=== PATIENT | male | born 1955 | race Caucasian/White ===

== ENCOUNTER 2017-12-11 09:29 | Outpatient (CLI) | payer OTHER ==
--- NOTE | 2017-12-11 16:28 | Ultrasound Report ---
Procedure Date: 12/11/2017 Accession Number: [id number] / [id number] Procedure: US - Abdomen Complete CPT Code: FULL RESULT: EXAM: ABDOMEN ULTRASOUND EXAM DATE: 12/11/2017 11:38 AM. CLINICAL HISTORY: LIVER FUNCTION TESTS, ABNORMAL. COMPARISON: 12/11/2017 11:35 AM. TECHNIQUE: Real-time scanning was performed with static images obtained. FINDINGS: The examination is limited by the patient's body habitus. Liver: Coarse echotexture was increased echogenicity which can be seen with parenchymal disease such as steatosis. Liver measures at least 20 cm and appears subjectively somewhat enlarged. Main portal vein flow: Hepatopetal. Gallbladder: Normal. No stones, wall thickening, or sonographic Smith's sign. Biliary System: Common bile duct measures 3 mm. No intrahepatic or extrahepatic ductal dilatation. Pancreas: Not well seen. Kidneys: Right: 12.9 cm longitudinally. Normal. No contour-deforming mass, stones, or hydronephrosis. Left: 13.4 cm longitudinally. Normal. No contour-deforming mass, stones, or hydronephrosis. Spleen: 14.2 cm. Top normal in size, splenule incidentally noted. Aorta and Inferior Vena Cava: Unremarkable. Other: None. IMPRESSION: Echogenic liver, borderline enlarged. Suspect hepatic steatosis. Spleen top normal for size. RADIA
== END 2017-12-11 09:30 | disposition home or self-care (01) ==
LOC: DI 09:29
PROVIDERS: ATTEND Family Medicine
DX: R94.5 Abnormal results of liver function studies (principal)
CPT/HCPCS: 76700

== ENCOUNTER 2017-12-28 13:12 | Outpatient (CLI) | payer OTHER | END 2017-12-28 13:13 | disposition home or self-care (01) | LOC: NS 13:12 | PROVIDERS: ATTEND Family Medicine | DX: Z71.3 Dietary counseling and surveillance (principal); E11.65 Type 2 diabetes mellitus with hyperglycemia; Z68.41 Body mass index [BMI] 40.0-44.9, adult | CPT/HCPCS: 97802 ==

== ENCOUNTER 2018-06-22 13:46 | Outpatient (CLI) | payer OTHER ==
--- NOTE | 2018-06-23 16:12 | MRI Report ---
Reason: CERVICAL RADICULOPATHY, LEFT Procedure Date: 06/22/2018 Accession Number: [id number] / [id number] Procedure: MRI - Cervical Spine W/O CPT Code: FULL RESULT: EXAM: MRI CERVICAL SPINE WITHOUT CONTRAST EXAM DATE: 06/22/2018 02:46 PM. CLINICAL HISTORY: CERVICAL RADICULOPATHY, LEFT. COMPARISONS: Prior MRI cervical spine 06/10/2011. TECHNIQUE: Multiplanar, multisequence T1-weighted and fluid-sensitive sequences of the cervical spine without contrast. Other: None. Findings: Relevant images are indicated (image number, series number). Limited evaluation posterior cranial fossa contents are unremarkable. No abnormal cervical, thoracic cord signal. No suspicious marrow lesion. No prevertebral soft tissue swelling. Again seen advanced multilevel cervical spondylosis, progressive in the interval. There is no cervical paraspinal mass or collection. Normal expected vascular flow voids of the partly visualized bilateral vertebral arteries. Surrounding skeletal muscle is unremarkable. C1-C2: Unremarkable. C2-C3: Mild disk desiccation only. C3-C4: Mild disk desiccation, mild degenerative bilateral neural foramina narrowing. C4-C5: Mild/moderate disk desiccation, new grade 1 anterolisthesis C4 on C5, posterior broad-based disk bulge, moderate/marked canal stenosis. Uncovertebral joint, posterior facet hypertrophic change with moderate to marked left, moderate right neural foramina narrowing. C5-C6: Intervertebral disk space poorly seen suggesting either prior fusion versus progressive bony fusion, but no canal stenosis present. Moderate left, no significant right degenerative neural foraminal narrowing with posterior facet/uncovertebral joint hypertrophic change. C6-C7: Poorly visualized intervertebral disk suggesting prior fusion versus progressive bony degenerative fusion, posterior disk osteophyte complex with mild canal stenosis. Uncovertebral joint, posterior facet hypertrophic change with moderate left, marked right neural foramina narrowing. C7-T1: Moderate/marked disk desiccation, small posterior disk bulge, no canal stenosis. Uncovertebral joint, posterior facet hypertrophic change with marked bilateral neural foramina narrowing. C7-T1, T1-T2 demonstrates mild disk desiccation only with suspected hemangioma at T2. Impressions: 1. Progressive cervical spondylosis, worse compared with prior MRI cervical spine 06/10/2011, no abnormal cervical cord signal. Patient appears to have had interval fusion at C5-C6, C6-C7, correlate with the surgical history, otherwise progressive intervertebral bony fusion has occurred. Pertinent degenerative levels below. 2. C4-C5: New grade 1 anterolisthesis C4 on C5, moderate/marked degenerative canal stenosis. Moderate to marked degenerative bilateral neural frontal narrowing may contribute to bilateral C5 radiculopathy. 3. C5-C6: Suspected intervertebral fusion, correlate clinically. No canal stenosis. Moderate degenerative left neural foramina narrowing may contribute a left C6 radiculopathy. 4. C6-C7: Suspected intervertebral fusion, correlate clinically. Mild degenerative canal stenosis. There is moderate to marked degenerative bilateral neural frontal narrowing right worse than left, may contribute to bilateral C7 radiculopathy. 5. C7-T1: Moderate/marked disk desiccation, marked degenerative bilateral neural foramina narrowing may contribute a bilateral C8 radiculopathy. 6. Milder or no significant degenerative changes at the remaining cervical, upper thoracic spine levels as detailed. RADIA
== END 2018-06-22 13:47 | disposition home or self-care (01) ==
LOC: DI 13:46
PROVIDERS: ATTEND Family Medicine
DX: M47.22 Other spondylosis with radiculopathy, cervical region (principal); M48.02 Spinal stenosis, cervical region; Z98.1 Arthrodesis status
CPT/HCPCS: 72141

== ENCOUNTER 2018-08-30 15:22 | Outpatient (CLI) | payer OTHER ==
--- NOTE | 2018-09-02 08:35 | Ultrasound Report ---
Reason: VARICOSE VEINS,LOWER EXTREMITIES,WITH ULCER,LEG PA Procedure Date: 08/30/2018 Accession Number: [id number] / [id number] Procedure: US - Duplex Ext Veins Right CPT Code: FULL RESULT: EXAM: RIGHT LOWER EXTREMITY VENOUS ULTRASOUND EXAM DATE: 08/30/2018 04:14 PM. CLINICAL HISTORY: Leg pain COMPARISON: 08/30/2018 4:22 PM. TECHNIQUE: Real-time sonographic vascular imaging was performed by the civil manager through the lower extremity utilizing both color-flow and Doppler spectral analysis. Multiple outside sales account representative static images were saved for review. FINDINGS: Common Femoral Vein (CFV): Normal. CFV-GSV Junction: Normal. Profunda Femoral Vein (PFV): Normal. Femoral Vein (FV) Prox: Normal. Femoral Vein (FV) Mid: Normal. Femoral Vein (FV) Dist: Normal. Popliteal Vein: Normal. Posterior Tibial Veins: Normal. Peroneal Veins: Normal. Contralateral Side CFV: Normal. Other: Multiple superficial varicose veins are noted. IMPRESSION: No evidence for deep venous thrombosis. RAD[facility]
== END 2018-08-30 15:23 | disposition home or self-care (01) ==
LOC: DI 15:22
PROVIDERS: ATTEND Family Medicine
DX: I83.009 Varicose veins of unspecified lower extremity with ulcer of unspecified site (principal); M79.604 Pain in right leg

== ENCOUNTER 2018-10-22 16:45 | Emergency (ER) | payer MEDICARE, OTHER ==
--- NOTE | 2018-10-22 17:07 | ED Physician Documentation ---
History of Present Illness - Stated complaint Stated Complaint: WOUND RT ANKLE - Chief complaint Chief Complaint: Ext Problem - History obtained from History obtained from: Patient - History of Present Illness Timing: Last night (63-year-old gentleman with history of varicose veins, sees a vascular surgeon for same but no history of arterial disease. He is a type II diabetic. He has a nonhealing wound that is not particularly worse appearing on the right medial ankle and always has some pain for it but last night the pain was intermittently intolerable. There is no fever.) Review of Systems Constitutional: denies: Fever, Chills Cardiac: denies: Chest pain / pressure, Palpitations Respiratory: denies: Dyspnea, Cough GI: denies: Abdominal Pain, Nausea, Vomiting PD PAST MEDICAL HISTORY - Past Medical History Past Medical History: No Cardiovascular: Hypertension, High cholesterol Respiratory: Sleep apnea, CPAP use Neuro: None Endocrine/Autoimmune: Type 2 diabetes GI: GERD, Hiatal hernia : Benign prostate hypertrophy, Frequency HEENT: Chronic vision loss, Other Psych: Depression Musculoskeletal: Osteoarthritis, Other Derm: Psoriasis - Past Surgical History Past Surgical History: Yes General: Colonoscopy, Other Ortho: Spine surgery Neuro: Other HEENT: Tonsil/Adenoidectomy, Other - Present Medications Home Medications: Ambulatory Orders Medication Instructions Recorded Confirmed Acyclovir 400 mg PO TID PRN 10/29/15 12/21/17 Celecoxib [Celebrex] 200 mg PO DAILY 10/29/15 12/21/17 Fluticasone [Flonase] 2 sprays MEREDITH QPM 10/29/15 12/21/17 Metoprolol Tartrate [Lopressor] 25 mg PO BID 10/29/15 12/21/17 Simvastatin 20 mg PO DAILY 10/29/15 12/21/17 Zolpidem [Ambien] 10 mg PO HS 10/29/15 12/21/17 hydroCHLOROthiazide [Hydrodiuril] 25 mg PO DAILY 10/29/15 12/21/17 Doxazosin Mesylate 8 mg PO DAILY 12/21/17 12/21/17 buPROPion [Wellbutrin Sr] 150 mg PO BID 12/21/17 12/21/17 metFORMIN [Glucophage] 500 mg PO BID 12/21/17 12/21/17 Glipizide 5 mg PO BID 08/06/18 08/06/18 Gabapentin [Neurontin] 300 mg PO TID #60 capsule 10/22/18 - Allergies Allergies/Adverse Reactions: Allergies Allergy/AdvReac Type Severity Reaction Status Date / Time Penicillins Allergy Rash Verified 10/29/15 13:34 lisinopril AdvReac Unknown Verified 10/29/15 13:34 prednisone AdvReac Unknown Verified 10/29/15 13:34 - Social History Does the pt smoke?: No Smoking Status: Never smoker Does the pt drink ETOH?: No Does the pt have substance abuse?: No - Immunizations Immunizations are current?: Yes - POLST Patient has POLST: No PD ED PE NORMAL - Vitals Vital signs reviewed: Yes - General General: Alert and oriented X 3, No acute distress - Extremities Extremities: Other (On the right medial ankle there is a dime sized wound without evidence of infection. He has bounding pedal pulses and warm feet.) - Neuro Neuro: Alert and oriented X 3, Normal speech Results - Vitals Vitals: Vital Signs - 24 hr 10/22/18 16:49 Temperature 36.6 C Heart Rate 76 Respiratory 16 Rate Blood Pressure 149/90 H O2 Saturation 98 Oxygen O2 Source Room air - Labs Labs: Laboratory Tests 10/22/18 10/22/18 10/22/18 17:15 17:15 17:15 WBC 6.3 RBC 4.88 Hgb 14.7 Hct 44.1 MCV 90.4 MCH 30.1 MCHC 33.3 RDW 12.7 Plt Count 169 MPV 8.9 Neut # (Auto) 3.7 Lymph # (Auto) 1.6 [place] # (Auto) 0.6 Eos # (Auto) 0.2 Baso # (Auto) 0.0 Absolute Nucleated RBC 0.00 Nucleated RBC % 0.0 ESR 6 Sodium 139 Potassium 4.1 Chloride 101 Carbon Dioxide 28 Anion Gap 10.0 BUN 19 Creatinine 0.8 Estimated GFR (MDRD) 97 Glucose 149 H Calcium 9.6 PD MEDICAL DECISION MAKING - ED course ED course: 63-year-old gentleman with a nonhealing wound of the right medial ankle with increased pain. Its a lancinating intermittent pain. He has bounding pulses and warm feet, there is no evidence of peripheral vascular disease or ischemia as the cause of the pain. There may be a neuropathic component and he has take gabapentin in the past without issue and we will restart that. Labs are reassuring from an infectious standpoint. Departure - Departure Disposition: 01 Home, Self Care Clinical Impression: Neuropathic pain Wound of right ankle Qualifiers: Encounter type: initial encounter Qualified Code(s): S91.001A - Unspecified open wound, right ankle, initial encounter Diabetes Qualifiers: Diabetes mellitus type: type 2 Diabetes mellitus longterm insulin use: without marine oil terminal superintendent use Diabetes mellitus complication status: without complication Qualified Code(s): E11.9 - Type 2 diabetes mellitus without complications Condition: Good Record reviewed to determine appropriate education?: Yes Health Concerns: Worsening right ankle pain and a nonhealing wound; no evidence of peripheral vascular disease, arterial flow was excellent. There is no evidence of infection on x-ray or labs so suspect neuropathy is the source and we are starting gabapentin. Plan of Treatment: Starting gabapentin for pain control. Follow-up with your vascular surgeon and primary care physician. Care Goals: Improved pain, infection and significant arterial disease are ruled out. Instructions: ED Wound Care Prescriptions: Gabapentin [Neurontin] 300 mg PO TID #60 capsule Comments: Your blood pressure was elevated today on check into the emergency department. This does not mean that you have hypertension, it is a common phenomenon to come to the emergency department and have elevated blood pressure. I recommend that you see your primary care physician within the week to have it rechecked when you are feeling better.
[2018-10-22 17:24] LABS: BASOPHILS % (AUTO) 0.6 %; EOSINOPHILS # (AUTO) 0.2 10^3/uL (0.0-0.7); EOSINOPHILS % (AUTO) 3.5 %; HGB - HEMOGLOBIN 14.7 g/dL (14.0-18.0); LYMPHOCYTES # (AUTO) 1.6 10^3/uL (1.5-3.5); LYMPHOCYTES % (AUTO) 26.2 %; MEAN CORPUSCULAR HEMOGLOBIN 30.1 pg (27.0-31.0); MEAN CORPUSCULAR HGB CONC 33.3 g/dL (32.0-36.0); MEAN CORPUSCULAR VOLUME 90.4 fL (80.0-94.0); MEAN PLATELET VOLUME 8.9 fL (7.4-11.4); MONOCYTES # (AUTO) 0.6 10^3/uL (0.0-1.0); MONOCYTES % (AUTO) 9.7 %; NEUTROPHILS # (AUTO) 3.7 10^3/uL (1.5-6.6); NEUTROPHILS % (AUTO) 59.5 %; PLT - PLATELET COUNT 169 10^3/uL (130-450); RED BLOOD COUNT 4.88 10^6/uL (4.70-6.10); RED CELL DISTRIBUTION WIDTH 12.7 % (12.0-15.0); WHITE BLOOD COUNT 6.3 x10^3/uL (4.8-10.8)
[2018-10-22 17:44] LABS: BUN - BLOOD UREA NITROGEN 19 mg/dL (6-20); CALCIUM 9.6 mg/dL (8.5-10.3); CARBON DIOXIDE - CO2 28 mmol/L (21-32); CHLORIDE 101 mmol/L (101-111); CREATININE 0.8 mg/dL (0.6-1.2); GFR - MDRD 97 (>89); GLUCOSE 149 mg/dL (70-100); SODIUM 139 mmol/L (135-145)
--- NOTE | 2018-10-22 17:45 | XRAY Report ---
Reason: ankle pain, wound medial side Procedure Date: 10/22/2018 Accession Number: [id number] / [id number] Procedure: XR - Ankle 3 View RT CPT Code: FULL RESULT: EXAM: RIGHT ANKLE RADIOGRAPHY EXAM DATE: 10/22/2018 05:15 PM. CLINICAL HISTORY: Ankle pain, wound medial side. COMPARISON: ANKLE 3 VIEW RT 05/23/2017 11:50 AM. TECHNIQUE: 3 views. FINDINGS: Bones: No fracture or focal bony lesion. Joints: No evidence of dislocation. Soft Tissues: There is a small amount of linear calcification at the posterior margin of the distal tibia. No evidence of soft tissue air. No radiopaque foreign body. IMPRESSION: No evidence of fracture or focal bony lesion. RAD[facility]
[2018-10-22 18:05] VITALS: BP 138/82
[2018-10-22 18:20] LABS: CRP - C-REACTIVE PROTEIN < 1.0 mg/dL (0-1.0)
== END 2018-10-22 18:04 | disposition home or self-care (01) ==
LOC: ED 16:45
DX: S91.001A Unspecified open wound, right ankle, initial encounter (principal); X58.XXXA Exposure to other specified factors, initial encounter; E11.40 Type 2 diabetes mellitus with diabetic neuropathy, unspecified; Z79.84 Long term (current) use of oral hypoglycemic drugs; I10 Essential (primary) hypertension
CPT/HCPCS: 36415; 80048; 85025; 85651; 86140; 99283

== ENCOUNTER 2019-03-22 19:38 | Outpatient (CLI) | payer MEDICARE, OTHER | END 2019-03-22 19:39 | disposition critical access hospital (66) | LOC: EMS 19:38 | PROVIDERS: ATTEND Surgery | DX: M54.2 Cervicalgia (principal); R25.2 Cramp and spasm | CPT/HCPCS: A0425; A0429 ==

== ENCOUNTER 2019-03-22 19:50 | Emergency (ER) | payer MEDICARE, OTHER ==
[2019-03-22] MEDS ORDERED: SODIUM CHLORIDE 0.9% 1,000 ML IV ONE (20:05)
[2019-03-22] MEDS ORDERED: ONDANSETRON 4 MG/2 ML VIAL IVP STA (20:05)
[2019-03-22] MEDS ORDERED: KETOROLAC 30 MG/ML VIAL IVP STA (20:05)
[2019-03-22] MEDS ORDERED: HYDROmorphone 1 MG/ML CARPUJECT IVP STA ×2 (20:05→20:49)
--- NOTE | 2019-03-22 20:07 | ED Physician Documentation ---
History of Present Illness - Stated complaint Stated Complaint: NECK PAIN - Chief complaint Chief Complaint: General - History obtained from History obtained from: Patient, EMS - History of Present Illness Timing: Today (63-year-old gentleman with history of C5-C6 neck fusion presents with severe spasms of his neck starting earlier today. Its on the right side and down into the right upper back. It hurts more to rotate than it does to flex or extend. He denies weakness, numbness, tingling, saddle anesthesia, fevers. He tried Flexeril without relief.) Review of Systems Ten Systems: 10 systems reviewed and negative Constitutional: denies: Fever, Chills Cardiac: denies: Chest pain / pressure, Palpitations Respiratory: denies: Dyspnea, Cough GI: reports: Nausea. denies: Abdominal Pain, Vomiting PD PAST MEDICAL HISTORY - Past Medical History Cardiovascular: Hypertension, High cholesterol Respiratory: Sleep apnea, CPAP use Neuro: None Endocrine/Autoimmune: Type 2 diabetes GI: GERD, Hiatal hernia : Benign prostate hypertrophy, Frequency HEENT: Chronic vision loss, Other Psych: Depression Musculoskeletal: Osteoarthritis, Other Derm: Psoriasis - Past Surgical History Past Surgical History: Yes General: Colonoscopy, Other Ortho: Spine surgery Neuro: Other HEENT: Tonsil/Adenoidectomy, Other - Present Medications Home Medications: Ambulatory Orders Medication Instructions Recorded Confirmed Acyclovir 400 mg PO TID PRN 10/29/15 12/21/17 Celecoxib [Celebrex] 200 mg PO DAILY 10/29/15 12/21/17 Fluticasone [Flonase] 2 sprays MEREDITH QPM 10/29/15 12/21/17 Metoprolol Tartrate [Lopressor] 25 mg PO BID 10/29/15 12/21/17 Simvastatin 20 mg PO DAILY 10/29/15 12/21/17 Zolpidem [Ambien] 10 mg PO HS 10/29/15 12/21/17 hydroCHLOROthiazide [Hydrodiuril] 25 mg PO DAILY 10/29/15 12/21/17 Doxazosin Mesylate 8 mg PO DAILY 12/21/17 12/21/17 buPROPion [Wellbutrin Sr] 150 mg PO BID 12/21/17 12/21/17 metFORMIN [Glucophage] 500 mg PO BID 12/21/17 12/21/17 Glipizide 5 mg PO BID 08/06/18 08/06/18 Gabapentin [Neurontin] 300 mg PO TID #60 capsule 10/22/18 Cyclobenzaprine [Flexeril] 10 mg PO TID PRN #20 tablet 03/22/19 Oxycodone HCl/Acetaminophen 1 - 2 each PO Q6H PRN #14 tablet 03/22/19 [Percocet 5-325 mg Tablet] - Allergies Allergies/Adverse Reactions: Allergies Allergy/AdvReac Type Severity Reaction Status Date / Time Penicillins Allergy Rash Verified 10/29/15 13:34 lisinopril AdvReac Unknown Verified 10/29/15 13:34 prednisone AdvReac Unknown Verified 10/29/15 13:34 - Social History Does the pt smoke?: No Smoking Status: Never smoker Does the pt drink ETOH?: No Does the pt have substance abuse?: No - Immunizations Immunizations are current?: Yes - POLST Patient has POLST: No PD ED PE NORMAL - Vitals Vital signs reviewed: Yes - General General: Alert and oriented X 3, No acute distress - HEENT HEENT: PERRL, EOMI - Neck Neck: No bony TTP, Other (Significant tenderness of the right sternocleidomastoid and right upper back musculature. Hurts to rotate but not flex or extend.) - Cardiac Cardiac: RRR, No murmur - Respiratory Respiratory: No respiratory distress, Clear bilaterally - Abdomen Abdomen: Non tender - Extremities Extremities: No edema, No calf tenderness / cord, Other (Normal and symmetric horse breaker strength, thumb extension, interosseous strength bilaterally.) - Neuro Neuro: Alert and oriented X 3, No motor deficit, No sensory deficit, Normal speech Results - Vitals Vitals: Vital Signs - 24 hr 03/22/19 19:55 Temperature 36.8 C Heart Rate 85 Respiratory 20 Rate Blood Pressure 169/100 H O2 Saturation 98 Oxygen O2 Source Room air - Labs Labs: Laboratory Tests 03/22/19 03/22/19 20:27 20:27 WBC 7.1 RBC 4.74 Hgb 14.5 Hct 42.0 MCV 88.6 MCH 30.6 MCHC 34.5 RDW 12.4 Plt Count 180 MPV 8.9 Neut # (Auto) 5.1 Lymph # (Auto) 1.3 L [place] # (Auto) 0.5 Eos # (Auto) 0.1 Baso # (Auto) 0.1 Absolute Nucleated RBC 0.00 Nucleated RBC % 0.0 Sodium 137 Potassium 3.9 Chloride 101 Carbon Dioxide 26 Anion Gap 10.0 BUN 16 Creatinine 0.7 Estimated GFR (MDRD) 113 Glucose 169 H Calcium 9.2 Total Bilirubin 0.8 AST 25 ALT 42 Alkaline Phosphatase 49 Total Protein 6.8 Albumin 4.4 Globulin 2.4 Albumin/Globulin Ratio 1.8 Lipase 25 PD MEDICAL DECISION MAKING - ED course ED course: 63-year-old gentleman with painful neck spasm today. Treated with 2 doses of Dilaudid and 1 dose of Toradol and IV fluids with significant improvement. The examination is very typical for this diagnosis. Other diagnoses were considered but given the typical physical examination for muscle spasm things like PE, ACS, dissection were considered to be extraordinarily unlikely. Departure - Departure Disposition: 01 Home, Self Care Clinical Impression: Neck muscle spasm Condition: Good Record reviewed to determine appropriate education?: Yes Instructions: ED Spasm Neck No Injury Prescriptions: Cyclobenzaprine [Flexeril] 10 mg PO TID PRN #20 tablet PRN Reason: Spasms Oxycodone HCl/Acetaminophen [Percocet 5-325 mg Tablet] 1 - 2 each PO Q6H PRN #14 tablet PRN Reason: pain Comments: Call your doctor to arrange a follow-up appointment, make the next available appointment. In the interim, return anytime if worse or if new symptoms develop. Do not drink or drive while taking narcotic pain medication. Note that many narcotic pain relievers also contain Tylenol/acetaminophen. Please ensure that your total dose of acetaminophen from all sources does not exceed 3 g (3000 mg) per day. You may get constipated while on this medication. Take a stool softener such as Colace twice a day while you are on it. Also add an [id number] laxative such as senna or MiraLAX on any day that you do not have a bowel movement. If you received a narcotic pain medication or sedative while in the emergency department, do not drive for the next 24 hours. Your blood pressure was elevated today on check into the emergency department. This does not mean that you have hypertension, it is a common phenomenon to come to the emergency department and have elevated blood pressure. I recommend that you see your primary care physician within the week to have it rechecked when you are feeling better.
[2019-03-22 20:57] LABS: BASOPHILS # (AUTO) 0.1 10^3/uL (0.0-0.1); BASOPHILS % (AUTO) 0.7 %; EOSINOPHILS # (AUTO) 0.1 10^3/uL (0.0-0.7); EOSINOPHILS % (AUTO) 1.7 %; HGB - HEMOGLOBIN 14.5 g/dL (14.0-18.0); LYMPHOCYTES # (AUTO) 1.3 10^3/uL (1.5-3.5); LYMPHOCYTES % (AUTO) 18.5 %; MEAN CORPUSCULAR HEMOGLOBIN 30.6 pg (27.0-31.0); MEAN CORPUSCULAR HGB CONC 34.5 g/dL (32.0-36.0); MEAN CORPUSCULAR VOLUME 88.6 fL (80.0-94.0); MEAN PLATELET VOLUME 8.9 fL (7.4-11.4); MONOCYTES # (AUTO) 0.5 10^3/uL (0.0-1.0); MONOCYTES % (AUTO) 6.9 %; NEUTROPHILS # (AUTO) 5.1 10^3/uL (1.5-6.6); NEUTROPHILS % (AUTO) 71.6 %; PLT - PLATELET COUNT 180 10^3/uL (130-450); RED BLOOD COUNT 4.74 10^6/uL (4.70-6.10); RED CELL DISTRIBUTION WIDTH 12.4 % (12.0-15.0); WHITE BLOOD COUNT 7.1 x10^3/uL (4.8-10.8)
[2019-03-22 21:19] LABS: ALBUMIN 4.4 g/dL (3.2-5.5); ALBUMIN/GLOBULIN RATIO 1.8 (1.0-2.2); BILIRUBIN,TOTAL 0.8 mg/dL (0.2-1.0); CALCIUM 9.2 mg/dL (8.5-10.3); CREATININE 0.7 mg/dL (0.6-1.2); TOTAL PROTEIN 6.8 g/dL (6.7-8.2)
[2019-03-22] MEDS ORDERED: oxyCODONE/ACET 5/325 Prepack 4 PO STA (21:24)
[2019-03-22 21:34] VITALS: BP 147/87
== END 2019-03-22 21:37 | disposition home or self-care (01) ==
LOC: EDUNIT# → ED 19:50
DX: M62.830 Muscle spasm of back (principal); M54.2 Cervicalgia; Z98.1 Arthrodesis status; I10 Essential (primary) hypertension; E11.9 Type 2 diabetes mellitus without complications; Z79.84 Long term (current) use of oral hypoglycemic drugs
CPT/HCPCS: 36415; 80053; 83690; 85025; 96361; 96374; 96375; 96376; 99283; 99284; J1170

== ENCOUNTER 2019-04-03 09:00 | Outpatient (CLI) | payer MEDICARE, OTHER ==
[2019-04-03 19:03] LABS: ALBUMIN 4.6 g/dL (3.2-5.5); ALBUMIN/GLOBULIN RATIO 1.7 (1.0-2.2); ALKALINE PHOSPHATASE 70 IU/L (42-121); ALT ALANINE AMINOTRANSFERASE 51 IU/L (10-60); AST ASPARTATE AMINOTRANSFERASE 33 IU/L (10-42); BILIRUBIN,TOTAL 0.6 mg/dL (0.2-1.0); BUN - BLOOD UREA NITROGEN 15 mg/dL (6-20); CALCIUM 9.8 mg/dL (8.5-10.3); CARBON DIOXIDE - CO2 30 mmol/L (21-32); CHLORIDE 102 mmol/L (101-111); CHOL/HDL RATIO 3.4 (<5.0); CHOLESTEROL 167 mg/dL; CREATININE 0.7 mg/dL (0.6-1.2); GFR - MDRD 113 (>89); GLUCOSE 153 mg/dL (70-100); HDL CHOLESTEROL 49 mg/dL; SODIUM 140 mmol/L (135-145); TOTAL PROTEIN 7.3 g/dL (6.7-8.2)
[2019-04-03 19:24] LABS: HB2 TOTAL 15.9 g/dL; HEMOGLOBIN A1C 0.82 g/dL; HEMOGLOBIN A1C % 6.9 % (4.6-6.2)
[2019-04-03 19:44] LABS: LDL CHOLESTEROL,DIRECT 97 mg/dL
== END 2019-04-03 23:59 | disposition home or self-care (01) ==
LOC: LAB.WCP 09:00
PROVIDERS: ATTEND Family Medicine
DX: E11.9 Type 2 diabetes mellitus without complications (principal)
CPT/HCPCS: 36415; 80053; 80061; 83036; 83721

== ENCOUNTER 2020-01-30 15:11 | Outpatient (CLI) | payer MEDICARE, OTHER ==
--- NOTE | 2020-01-30 16:14 | SLEEP CARE CONSULTATION ---
Information from patient questionnaire entered by Carolann Delacruz. I have reviewed and concur with the information entered by Carolann Delacruz. This document represents the service I personally performed and the decisions made by me, Hailey Jean ARNP. History of Present Illness Service Date and Time: 01/30/2020 1511 Reason for Visit: New patient, Previously diagnosed sleep apnea, sleep apnea on CPAP therapy Chief Complaint: reports: Other (My CPAP is not heating) Date of Onset: 23 years Usual bedtime: 12pm - 2 am Time it takes to fall asleep: 10-15 minutes Snores at night: Yes Observed to quit breathing while asleep: Yes Sleeps alone due to snoring: Yes Number of times waking at night: 1-2 Reasons for waking at night: reports: Bathroom. 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 He is having issues with the humidifier on the CPAP machine does not seem to be working. He is waking up with dry mouth and the water reservoir is not being used. It has been irregular, sometimes working and other times not. He thinks the machine is 4-5 years old but he is not certain. - Parasomnia Symptoms Ever been unable to move upon waking from sleep: No Walks in sleep: No Talks in sleep: No Ever acted out dreams in sleep: No Ever felt weak in the knees when startled or emotional: No Bothered by creepy, crawly, restless sensations in legs: No Problems with memory or concentration: Yes CPAP Compliance Data - Data Reviewed with Patient Average duration of nightly device use: 6 hours 28 minutes Compliance rate %: 99.4 Current pressure setting (cmH2O): 15 Humidity settin Heated hose settin Average residual AHI: 1.7 Central apnea: 0.0 Obstructive apnea: 1.1 Average large leak: 6 minutes 57 seconds Compliance data discussion: He is getting his supplies from [employer], as needed. He is using a full face Quatro Fx medium. Patient has a full face mueller. He last changed the cushion about 1-2 weeks ago. He does have a spare mask if needed. Subjective Patient concerns: reports: dry mouth, nose, throat (more lately), other (for months now the water level of the water chamber does not move). denies: ae rophagia, mask discomfort, air blowing in eyes, mask leak noise, condensation in mask/hose, nasal congestion (uses OTC Nasocort daily), epistaxis Observed to snore while using device: No Current pressure setting perceived as: comfortable On therapy, patient: reports: sleeping better, awakening more refreshed, being more awake and alert during the day, more rested overall. denies: drowsiness while driving Initial [place] Sleepiness Scale score: 9 (in 2019) Past Medical History Past Medical History: reports: Hypertension, Diabetes, Arthritis, Impotence, Depression. denies: Congestive Heart Failure, Coronary Heart Disease, Arrythmia, Hypothyroidism, Anemia, Anxiety, Mood disorder, GERD, Attention deficit Social History The patient's occupation is a Retired. Patient is and lives in [place]. Have you smoked in the past 12 months: No Alcohol use: No Caffeine use: Yes Caffeine amount and frequency: 2 cups of coffee/day Family History Family history of sleep disordered breathing: Yes (sister, son) Allergies and Home Medications Drug allergies reviewed: Yes (penicillin, lisinopril, prednisone) Home medication list reviewed: Yes Allergy and home medication list: Acyclovir Celecoxib Metoprolol HCTZ Simvastatin Glipizide Bupropion Doxazosin Ambien, prn Review of Systems Weight gain over past 5 years: 25 Cardiovascular: reports: high blood pressure. denies: palpitations, chest pain, irregular heart rate or pulse, leg or foot swelling Respiratory: denies: shortness of breath Gastrointestinal: denies: heartburn, difficulty swallowing Urinary: reports: frequency, urgency, impotence Neurological: reports: head trauma (teenager). denies: headaches, seizure, speech dysfunction, gait or balance problems, fainting or unconsciousness Psychiatric: reports: depression. denies: Attention Deficit Hyperactivity, anxiety Ear/Nose/Throat: reports: sinus problems, tonsillectomy, wisdom teeth removed. denies: nasal congestion, nose bleeds, dry mouth/throat, injury to nose Endocrine: reports: sluggishness, too hot or cold. denies: thyroid disease Musculoskeletal: reports: joint pain, mobility problems, other (need knee replacement) Immunologic: reports: rash, itching, allergies to food or environment (seasonal allergies, hayfever) Physical Exam Blood Pressure: 124/90 Cuff size: long Heart Rate: 74 O2 Saturation: 98 Height: 5 ft 11 in Weight: 306 lb Body Mass Index: 42.7 BMI Classification: Morbidly Obese Neck circumference: 18.5 (inches) HEENT: No craniofacial malformation Nostrils: patent to airflow Turbinates: normal Septum: midline Mouth and throat: narrow oropharynx Soft palate: normal Hard palate: arched Uvula: normal Uvula visualization: 50% Mallampati Class II Tongue: normal in size Tonsils: absent bilaterally Chin and jaw: normal size and position Neck: normal w/o lymphadenopathy or thyromegaly Heart: regular rate and rhythm Lungs: clear bilaterally Impression and Plan 1. Obstructive Sleep Apnea-Hypopnea Syndrome, severe mixed, with good treatment compliance and good apnea control. On CPAP therapy, the patient has better sleep quality and is more rested overall. His machine is malfunctioning, he is getting oral dryness more frequently and the water container does not seem to be losing water. It seems to be happening more often. I will have the machine checked for malfunction. If his machine is five years old, we could just have it replaced and the office staff will look into this. He is very compliant with great apnea control and we can go to a annual visit at this point unless he has any other concerns. Patient's apnea severity and rationale for treatment to reduce apnea, improve sleep quality and reduce cardiovascular and cerebrovascular events was reviewed. I also reviewed the benefit of consistent device use of CPAP for hypertension, diabetes, and depression. * Continue auto CPAP pressure at 15 cmH2O * Check CPAP for malfunction * Notify me if snoring with mask or feeling that the pressure is too much or too little * Attempt to lose weight * Call this office if any problems using CPAP * Return for follow up in 1 year, or sooner if concerns arise Counseling Topics: Weight loss health impact Time Spent with Patient (minutes): 43
[2020-01-30 16:15] VITALS: BP 124/90
== END 2020-01-30 15:12 | disposition home or self-care (01) ==
LOC: SC 15:11
PROVIDERS: ATTEND Nurse Practitioner Family
DX: G47.33 Obstructive sleep apnea (adult) (pediatric) (principal); E66.01 Morbid (severe) obesity due to excess calories; Z68.41 Body mass index [BMI] 40.0-44.9, adult
CPT/HCPCS: 99203; G0463; 99212

== ENCOUNTER 2020-06-23 11:35 | Outpatient (CLI) | payer MEDICARE, OTHER ==
--- NOTE | 2020-06-23 12:19 | XRAY Report ---
PROCEDURE: Tib/Fib LT INDICATIONS: L LEG PX TECHNIQUE: 2 views of the tibia and fibula were acquired. COMPARISON: None. FINDINGS: Bones: No acute fractures or dislocations. No suspicious bony lesions. Degenerative changes are se en in the knee with narrowing of the medial femorotibial compartment joint space. Soft tissues: No suspicious soft tissue calcifications or masses. IMPRESSION: No acute osseous abnormality. If there is clinical concern or persistent symptoms, additional imaging such as repeat radiographs or advanced imaging (e.g. CT, MRI) may be helpful for further evaluation. Reviewed by: Mauro Abbott MD on 06/23/2020 12:18 PM PST Approved by: Mauro Abbott MD on 06/23/2020 12:18 PM PST Station ID: [id number]
== END 2020-06-23 23:59 | disposition home or self-care (01) ==
LOC: DI.N 11:35
PROVIDERS: ATTEND Family Medicine
DX: M79.605 Pain in left leg (principal)

== ENCOUNTER 2020-06-27 09:22 | Emergency (ER) | payer MEDICARE, OTHER ==
[2020-06-27] MEDS ORDERED: oxyCODONE 5 MG TABLET PO STA (09:58)
--- NOTE | 2020-06-27 09:59 | ED Physician Documentation ---
PD HPI LOWER EXT INJURY - Stated complaint Stated Complaint: L LEG PX - Chief complaint Chief Complaint: Trauma Ext - History obtained from History obtained from: Patient - Additional information Additional information: 64-year-old gentleman with type 2 diabetes had a ground-level fall and hit his calf on some wood 10 days ago. He has had progressive calf pain since. He was seen at the urgent care and per his report x-rays were done and negative, but the pain is progressive. He did take oxycodone last night which was helpful. He is able to walk and bear weight. No fevers or chills. Review of Systems Constitutional: reports: Reviewed and negative Nose: reports: Reviewed and negative Throat: reports: Reviewed and negative Cardiac: reports: Reviewed and negative Respiratory: reports: Reviewed and negative PD PAST MEDICAL HISTORY - Past Medical History Past Medical History: Yes Cardiovascular: Hypertension, High cholesterol Respiratory: Sleep apnea, CPAP use Neuro: Head injury, Peripheral neuropathy Endocrine/Autoimmune: Type 2 diabetes GI: GERD, Hiatal hernia : Benign prostate hypertrophy, Frequency HEENT: Chronic vision loss, Other Psych: Depression Musculoskeletal: Osteoarthritis, Other Derm: Psoriasis - Past Surgical History Past Surgical History: Yes General: Colonoscopy, Other Ortho: Spine surgery Neuro: Other HEENT: Tonsil/Adenoidectomy, Other - Present Medications Home Medications: Ambulatory Orders Medication Instructions Recorded Confirmed Acyclovir 400 mg PO TID PRN 10/29/15 06/27/20 Celecoxib [Celebrex] 200 mg PO DAILY PRN 10/29/15 06/27/20 Fluticasone [Flonase] 2 sprays MEREDITH QPM 10/29/15 06/27/20 Metoprolol Tartrate [Lopressor] 25 mg PO BID 10/29/15 06/27/20 Simvastatin 20 mg PO DAILY 10/29/15 06/27/20 Zolpidem [Ambien] 10 mg PO HS 10/29/15 06/27/20 hydroCHLOROthiazide [Hydrodiuril] 25 mg PO DAILY 10/29/15 06/27/20 Doxazosin Mesylate 8 mg PO DAILY 12/21/17 06/27/20 buPROPion [Wellbutrin Sr] 150 mg PO BID 12/21/17 06/27/20 metFORMIN [Glucophage] 500 mg PO BID 12/21/17 06/27/20 Glipizide 5 mg PO BID 08/06/18 06/27/20 Cyclobenzaprine [Flexeril] 10 mg PO TID PRN #20 tablet 03/22/19 06/27/20 Oxycodone HCl/Acetaminophen 1 - 2 each PO Q6H PRN #20 tab 06/27/20 [Percocet 5-325 mg Tablet] - Allergies Allergies/Adverse Reactions: Allergies Allergy/AdvReac Type Severity Reaction Status Date / Time Penicillins Allergy Rash Verified 06/27/20 09:26 lisinopril AdvReac Unknown Verified 06/27/20 09:26 prednisone AdvReac Unknown Verified 06/27/20 09:26 - Social History Does the pt smoke?: No Smoking Status: Never smoker Does the pt drink ETOH?: No Does the pt have substance abuse?: No - Immunizations Immunizations are current?: Yes - POLST Patient has POLST: No PD ED PE NORMAL - Vitals Vital signs reviewed: Yes - General General: Alert and oriented X 3, No acute distress - HEENT HEENT: PERRL, EOMI - Neck Neck: No bony TTP - Extremities Extremities: Other (The left calf is tender, there is some dependent bruising about the left ankle. There is no bony tenderness of the left leg. Passive stretch of the left calf is painless. Compartments are soft. Normal left pedal pulses and sensation.) - Neuro Neuro: Alert and oriented X 3, Normal speech Results - Vitals Vitals: Vital Signs - 24 hr 06/27/20 09:26 Temperature 36 C L Heart Rate 92 Respiratory 22 Rate Blood Pressure 148/92 H O2 Saturation 98 Oxygen O2 Source Room air - Rads (name of study) L leg duplex Radiology: EMP read contemporaneously (No DVT, there is a hematoma.) PD MEDICAL DECISION MAKING - ED course ED course: 64-year-old gentleman with left calf injury, previous x-rays were negative. No clinical evidence of compartment syndrome although this is definitely considered. Ultrasound shows no DVT but he does have a hematoma. Departure - Departure Disposition: 01 Home, Self Care Clinical Impression: Traumatic hematoma of lower leg Qualifiers: Encounter type: initial encounter Laterality: left Qualified Code(s): S80.12XA - Contusion of left lower leg, initial encounter Condition: Good Record reviewed to determine appropriate education?: Yes Instructions: ED Hematoma Prescriptions: Oxycodone HCl/Acetaminophen [Percocet 5-325 mg Tablet] 1 - 2 each PO Q6H PRN #20 tab PRN Reason: pain Comments: Use the boot you have at home, continue to ice and elevate is much as possible. Return for new or worsening symptoms or if the pain medication does not control your pain.
--- NOTE | 2020-06-27 11:48 | Ultrasound Report ---
PROCEDURE: Duplex Ext Veins Left INDICATIONS: leg pain TECHNIQUE: Real-time imaging, as well as color and pulse Doppler interrogation, were performed of the lower extr emity deep veins from the inguinal ligament to the popliteal fossa. COMPARISON: None. FINDINGS: The deep veins are normally compressible, and free of intraluminal thrombus. Color and pu lse Doppler demonstrate normal phasic intraluminal flow. There is normal augmentation response to di stal compression maneuver. Heterogeneous echogenicity focus within the left calf posteriorly measuri ng 62 mm. IMPRESSION: No evidence of left lower extremity DVT. Left calf hypoechoic focus, possibly indicating a complex Whiting's cyst or hematoma. Reviewed by: Iqra Mcqueen MD on 06/27/2020 10:47 AM [facility] Approved by: Iqra Mcqueen MD on 06/27/2020 10:47 AM [facility] Station ID: [id number]
[2020-06-27 12:04] VITALS: BP 138/85
== END 2020-06-27 12:03 | disposition home or self-care (01) ==
LOC: ED 09:22
DX: S80.12XA Contusion of left lower leg, initial encounter (principal); W01.198A Fall on same level from slipping, tripping and stumbling with subsequent striking against other object, initial encounter; E11.42 Type 2 diabetes mellitus with diabetic polyneuropathy; Z79.84 Long term (current) use of oral hypoglycemic drugs; I10 Essential (primary) hypertension
CPT/HCPCS: 93971; 99284; A9270

== ENCOUNTER 2020-08-27 14:14 | Outpatient (CLI) | payer MEDICARE, OTHER ==
[2020-08-27 14:47] LABS: BASOPHILS # (AUTO) 0.1 10^3/uL (0.0-0.1); BASOPHILS % (AUTO) 0.9 %; EOSINOPHILS # (AUTO) 0.1 10^3/uL (0.0-0.7); EOSINOPHILS % (AUTO) 1.8 %; HCT - HEMATOCRIT 44.3 % (42.0-52.0); HGB - HEMOGLOBIN 15.5 g/dL (14.0-18.0); LYMPHOCYTES # (AUTO) 1.6 10^3/uL (1.5-3.5); LYMPHOCYTES % (AUTO) 22.4 %; MEAN CORPUSCULAR HEMOGLOBIN 30.9 pg (27.0-31.0); MEAN CORPUSCULAR VOLUME 88.2 fL (80.0-94.0); MEAN PLATELET VOLUME 8.5 fL (7.4-11.4); MONOCYTES # (AUTO) 0.6 10^3/uL (0.0-1.0); MONOCYTES % (AUTO) 7.8 %; NEUTROPHILS # (AUTO) 4.7 10^3/uL (1.5-6.6); NEUTROPHILS % (AUTO) 66.7 %; PLT - PLATELET COUNT 195 10^3/uL (130-450); RED BLOOD COUNT 5.02 10^6/uL (4.70-6.10); RED CELL DISTRIBUTION WIDTH 12.9 % (12.0-15.0); WHITE BLOOD COUNT 7.1 x10^3/uL (4.8-10.8)
[2020-08-27 14:55] LABS: CALCIUM 9.8 mg/dL (8.5-10.3); CREATININE 0.8 mg/dL (0.6-1.2); POTASSIUM 4.3 mmol/L (3.5-5.0)
== END 2020-08-27 14:15 | disposition home or self-care (01) ==
LOC: LAB 14:14
PROVIDERS: ATTEND Orthopaedic Surgery
DX: Z01.812 Encounter for preprocedural laboratory examination (principal)
CPT/HCPCS: 36415; 80048; 85025

== ENCOUNTER 2021-08-01 13:00 | Outpatient (CLI) | payer MEDICARE, OTHER ==
[2021-08-01 21:08] LABS: FECAL OCCULT BLOOD (FIT) POSITIVE (NEGATIVE)
== END 2021-08-01 23:59 | disposition home or self-care (01) ==
LOC: LAB.N 13:00
PROVIDERS: ATTEND Nurse Practitioner Family
DX: R19.7 Diarrhea, unspecified (principal)
CPT/HCPCS: 81599; 82274; 83993; 87045; 87329; 87427; 87449; 87493

== ENCOUNTER 2021-08-09 15:07 | Outpatient (CLI) | payer MEDICARE, OTHER ==
[2021-08-09 18:22] LABS: CREATININE,URINE 62.2 mg/dL; MICROALBUM/CREATININE RATIO,UR 9.6 ug/mg (<30.0); MICROALBUMIN,URINE 0.6 mg/dL (0-300.0)
[2021-08-09 20:41] LABS: ESTIMATED AVERAGE GLUCOSE 123 mg/dL (70-100); HEMOGLOBIN A1c% 5.9 % (4.27-6.07)
== END 2021-08-09 15:08 | disposition home or self-care (01) ==
LOC: LAB.N 15:07
PROVIDERS: ATTEND Nurse Practitioner Family
DX: E11.9 Type 2 diabetes mellitus without complications (principal)
CPT/HCPCS: 36415; 82043; 82570; 83036

== ENCOUNTER 2021-08-10 11:00 | Outpatient (CLI) | payer MEDICARE, OTHER | END 2021-08-10 23:59 | disposition home or self-care (01) | LOC: LAB.N 11:00 | PROVIDERS: ATTEND Nurse Practitioner Family | DX: R19.7 Diarrhea, unspecified (principal) | CPT/HCPCS: 83993 ==

== ENCOUNTER 2022-01-03 11:15 | Outpatient (CLI) | payer MEDICARE, OTHER ==
--- NOTE | 2022-01-03 13:45 | XRAY Report ---
PROCEDURE: Ankle 3 View RT INDICATIONS: R ANKLE PX TECHNIQUE: 3 views of the ankle were acquired. COMPARISON: Right ankle radiographs 10/22/2018. FINDINGS: Bones: No acute fractures or dislocations. No definite mortise asymmetry. No suspicious bony lesion s. Similar crescentic calcification adjacent to the posterior malleolus, could represent sequela of remote injury. A plantar calcaneal spur is present. Soft tissues: No tibiotalar joint effusion. Achilles tendon appears normal. IMPRESSION: No acute osseous abnormality. If symptoms persist, follow-up radiographs and/or CT or MRI may be help ful for further evaluation. Reviewed by: Mauro Wise MD on 01/03/2022 1:44 PM PDT Approved by: Mauro Wise MD on 01/03/2022 1:44 PM PDT Station ID: [id number]
== END 2022-01-03 11:16 | disposition home or self-care (01) ==
LOC: DI.N 11:15
PROVIDERS: ATTEND Nurse Practitioner Family
DX: M77.31 Calcaneal spur, right foot (principal); M25.571 Pain in right ankle and joints of right foot; I10 Essential (primary) hypertension; E78.5 Hyperlipidemia, unspecified; E11.9 Type 2 diabetes mellitus without complications; R35.0 Frequency of micturition; R35.1 Nocturia
CPT/HCPCS: 36415; 80053; 80061; 81001; 81003; 82043; 82570; 83036; 83721; 84443; 85025; 87086

== ENCOUNTER 2022-01-03 11:20 | Outpatient (CLI) | payer MEDICARE, OTHER ==
[2022-01-03 17:50] LABS: BASOPHILS # (AUTO) 0.1 10^3/uL (0.0-0.1); BASOPHILS % (AUTO) 0.7 %; EOSINOPHILS # (AUTO) 0.2 10^3/uL (0.0-0.7); EOSINOPHILS % (AUTO) 2.4 %; HGB - HEMOGLOBIN 14.6 g/dL (14.0-18.0); LYMPHOCYTES % (AUTO) 12.5 %; MEAN CORPUSCULAR HEMOGLOBIN 30.7 pg (27.0-31.0); MEAN CORPUSCULAR VOLUME 90.5 fL (80.0-94.0); MEAN PLATELET VOLUME 9.7 fL (7.4-11.4); MONOCYTES # (AUTO) 0.6 10^3/uL (0.0-1.0); MONOCYTES % (AUTO) 8.4 %; NEUTROPHILS # (AUTO) 5.8 10^3/uL (1.5-6.6); NEUTROPHILS % (AUTO) 75.6 %; PLT - PLATELET COUNT 180 10^3/uL (130-450); RED BLOOD COUNT 4.75 10^6/uL (4.70-6.10); RED CELL DISTRIBUTION WIDTH 13.2 % (12.0-15.0); WHITE BLOOD COUNT 7.6 x10^3/uL (4.8-10.8)
[2022-01-03 18:10] LABS: BILIRUBIN,URINE NEGATIVE (NEGATIVE); GLUCOSE, URINE (UA) NEGATIVE (NEGATIVE); KETONES,URINE (UA) NEGATIVE (NEGATIVE); LEUKOCYTE ESTERASE, URINE NEGATIVE (NEGATIVE); NITRITE,URINE NEGATIVE (NEGATIVE); OCCULT BLOOD,URINE NEGATIVE (NEGATIVE); PROTEIN,URINE NEGATIVE (NEGATIVE); UROBILINOGEN,URINE 0.2 (NORMAL) E.U./dL (NORMAL)
[2022-01-03 18:13] LABS: ALBUMIN 4.4 g/dL (3.2-5.5); ALBUMIN/GLOBULIN RATIO 1.6 (1.0-2.2); ALKALINE PHOSPHATASE 45 IU/L (42-121); ALT ALANINE AMINOTRANSFERASE 37 IU/L (10-60); AST ASPARTATE AMINOTRANSFERASE 25 IU/L (10-42); BACTERIA,URINE None Seen /HPF (None Seen); BILIRUBIN,TOTAL 0.8 mg/dL (0.2-1.0); BUN - BLOOD UREA NITROGEN 17 mg/dL (6-20); CALCIUM 9.7 mg/dL (8.5-10.3); CARBON DIOXIDE - CO2 29 mmol/L (21-32); CHLORIDE 100 mmol/L (101-111); CHOL/HDL RATIO 2.4 (<5.0); CHOLESTEROL 146 mg/dL; CLARITY,URINE CLEAR (CLEAR); CREATININE 0.9 mg/dL (0.6-1.2); GFR - MDRD 84 (>89); GLUCOSE 159 mg/dL (70-100); HDL CHOLESTEROL 61 mg/dL; LDL CHOLESTEROL,CALCULATED 67 mg/dL; LDL/HDL RATIO 1.1 (<3.6); POTASSIUM 4.7 mmol/L (3.5-5.0); RBC,URINE 0-5 /HPF (0-5); SODIUM 137 mmol/L (135-145); SQUAMOUS EPITHELIAL CELL,UR RARE Squamous (<= Few); TOTAL PROTEIN 7.1 g/dL (6.7-8.2); TRIGLYCERIDES 90 mg/dL; VLDL CHOLESTEROL 18 mg/dL; WBC,URINE 0-3 /HPF (0-3)
[2022-01-03 18:17] LABS: THYROID STIMULATING HORMONE 2.7 uIU/mL (0.34-5.60)
[2022-01-03 18:22] LABS: CREATININE,URINE 95.6 mg/dL; MICROALBUM/CREATININE RATIO,UR 7.3 ug/mg (<30.0); MICROALBUMIN,URINE 0.7 mg/dL (0-300.0)
[2022-01-03 21:12] LABS: ESTIMATED AVERAGE GLUCOSE 120 mg/dL (70-100); HEMOGLOBIN A1c% 5.8 % (4.27-6.07)
== END 2022-01-03 11:21 | disposition home or self-care (01) ==
LOC: LAB.N 11:20
PROVIDERS: ATTEND Nurse Practitioner Family
DX: I10 Essential (primary) hypertension (principal); E78.5 Hyperlipidemia, unspecified; E11.9 Type 2 diabetes mellitus without complications; R35.0 Frequency of micturition; R35.1 Nocturia
CPT/HCPCS: 36415; 80053; 80061; 81001; 81003; 82043; 82570; 83036; 83721; 84443; 85025; 87086

== ENCOUNTER 2022-01-12 12:15 | Outpatient (CLI) | payer MEDICARE, OTHER ==
[2022-01-12] MEDS ORDERED: DIATRIZOATE MEGLU/DIATRIZO SOD 30 ML BOTTLE PO ONE ×2 (12:52→16:52)
--- NOTE | 2022-01-12 14:51 | CT Report ---
PROCEDURE: Abdomen/Pelvis W INDICATIONS: DIARRHEA CONTRAST: IV CONTRAST: Optiray 320 ml: 100 PO CONTRAST: Redi-Cat ml30 TECHNIQUE: After the administration of oral and intravenous contrast, 5 mm thick sections acquired from the diap hragms to the symphysis. 5 mm thick coronal and sagittal reformats were acquired. For radiation dos e reduction, the following was used: automated exposure control, adjustment of mA and/or kV accordin g to patient size. COMPARISON: None. FINDINGS: Image quality: Excellent. ABDOMEN: Lung bases: There is a 1.8 cm spiculated nodule involving the patient's right lower lobe. Given the i maging findings I would recommended PET CT scan to evaluate for increased metabolic activity. Heart size is normal. Solid organs: Liver and spleen are normal in size and enhancement. Gallbladder appears within flor l limits. Biliary system is non dilated. Pancreas enhances normally. There are small bilateral adre nal nodules which likely represent small adenomas however these can be further evaluated the time of PET/CT scan. Kidneys demonstrate normal size and enhancement, without hydronephrosis. Peritoneum and bowel: Bowel loops demonstrate normal wall thickness and caliber. No free fluid or a ir. The appendix is visualized and appears normal. There is moderate distention of the stomach at the time of imaging. There are postsurgical changes at the GE junction. Nodes and vessels: No retroperitoneal or mesenteric adenopathy by size criteria. Aorta and inferior vena cava are normal in size. Miscellaneous: No ventral hernias. PELVIS: Genitourinary: Bladder wall thickness is normal. Miscellaneous: No inguinal hernias or adenopathy. Bones: No suspicious bony lesions. No vertebral body compression fractures. There are bilateral pars defects present at L5-S1. IMPRESSION: 1. 1.8 cm spiculated mass right lower lobe. Recommend PET CT scan for further evaluation to evaluate for increased metabolic activity. 2. Small bilateral adrenal nodules in the 1 cm range. These likely represent small adenomas however t hey can be further characterized during the PET CT scan. 3. Coronary artery and atherosclerotic change. 4. Prior postsurgical change at the GE junction 5. Bilateral pars defects present at L5-S1. Reviewed by: Ron Somers MD on 01/12/2022 2:49 PM PDT Approved by: Ron Somers MD on 01/12/2022 2:49 PM PDT Station ID: [id number]
== END 2022-01-12 12:16 | disposition home or self-care (01) ==
LOC: DI 12:15
PROVIDERS: ATTEND Nurse Practitioner
DX: R19.7 Diarrhea, unspecified (principal); R91.8 Other nonspecific abnormal finding of lung field; R93.5 Abnormal findings on diagnostic imaging of other abdominal regions, including retroperitoneum; Z98.890 Other specified postprocedural states
CPT/HCPCS: 74177; Q9963; Q9967

== ENCOUNTER 2022-08-05 13:43 | Outpatient (CLI) | payer MEDICARE, OTHER ==
--- NOTE | 2022-08-05 20:40 | CT Report ---
PROCEDURE: CHEST WO INDICATIONS: LUNG MASS/ 6 MON FU TO PET SCAN TECHNIQUE: Noncontrast 1mm axial images were acquired from the pulmonary apices to the posterior costophrenic an gles. Axial 5 mm soft tissue kernel reconstructions were performed as well as 8 mm axial MIP and cor onal and sagittal 5 mm reformations. For radiation dose reduction, the following was used: automate d exposure control, adjustment of mA and/or kV according to patient size. COMPARISON: CT abdomen pelvis dated 01/12/2022; mentioned PET CT is not available for review. FINDINGS: Image quality: Excellent. Lungs and pleura: No pleural effusions. No pneumothorax. The previously noted spiculated right lower lobe pulmonary nodule is again identified. On today's examination this measures 2.0 x 1.9 x 1.2 cm c ompared to 1.7 x 1.7 x 1.2 cm upon my repeat measurements. No additional suspicious nodularity identi fied. Mediastinum: Heart size is normal. Moderate coronary vascular calcifications. No pericardial effusion s. No mediastinal adenopathy by size criteria. No large vessel abnormality. Chest wall and lower neck: Thyroid is unremarkable. No axillary or supraclavicular adenopathy by size . Bones: No aggressive osseous abnormality. Upper Abdomen: Stable appearance of the adrenal glands with questionable nodularity. Postsurgical silke nges of the gastroesophageal junction. No acute abnormality. IMPRESSION: Minimal increased lower lobe spiculated pulmonary nodule now measuring 2.0 cm in greatest diameter co mpared to 1.7 cm on prior exam. This again is suspicious for malignancy recommend short-term follow-u p versus sampling. Reviewed by: Shaq Juarez DO on 08/05/2022 7:39 PM [facility] Approved by: Shaq Juarez DO on 08/05/2022 7:39 PM [facility] Station ID: [id number]
== END 2022-08-05 13:44 | disposition home or self-care (01) ==
LOC: DI 13:43
PROVIDERS: ATTEND Nurse Practitioner Family
DX: R91.1 Solitary pulmonary nodule (principal)

== ENCOUNTER 2023-01-27 19:56 | Outpatient (CLI) | payer MEDICARE, OTHER | END 2023-01-27 23:59 | disposition critical access hospital (66) | LOC: EMS 19:56 | DX: M54.50 Low back pain, unspecified (principal); W11.XXXA Fall on and from ladder, initial encounter; Y92.008 Other place in unspecified non-institutional (private) residence as the place of occurrence of the external cause | CPT/HCPCS: A0425; A0427 ==

== ENCOUNTER 2023-02-05 11:58 | Outpatient (CLI) | payer MEDICARE, OTHER ==
[2023-02-05 18:08] LABS: BASOPHILS # (AUTO) 0.1 10^3/uL (0.0-0.1); BASOPHILS % (AUTO) 0.9 %; EOSINOPHILS # (AUTO) 0.2 10^3/uL (0.0-0.7); EOSINOPHILS % (AUTO) 3.3 %; HCT - HEMATOCRIT 43.4 % (42.0-52.0); HGB - HEMOGLOBIN 14.7 g/dL (14.0-18.0); LYMPHOCYTES % (AUTO) 15.1 %; MEAN CORPUSCULAR HEMOGLOBIN 30.5 pg (27.0-31.0); MEAN CORPUSCULAR HGB CONC 33.9 g/dL (32.0-36.0); MEAN PLATELET VOLUME 9.3 fL (7.4-11.4); MONOCYTES # (AUTO) 0.5 10^3/uL (0.0-1.0); MONOCYTES % (AUTO) 7.9 %; NEUTROPHILS # (AUTO) 4.7 10^3/uL (1.5-6.6); NEUTROPHILS % (AUTO) 72.2 %; PLT - PLATELET COUNT 199 10^3/uL (130-450); RED BLOOD COUNT 4.82 10^6/uL (4.70-6.10); RED CELL DISTRIBUTION WIDTH 13.3 % (12.0-15.0); WHITE BLOOD COUNT 6.6 x10^3/uL (4.8-10.8)
[2023-02-05 18:21] LABS: ALBUMIN 4.5 g/dL (3.2-5.5); ALBUMIN/GLOBULIN RATIO 2.1 (1.0-2.2); ALKALINE PHOSPHATASE 81 IU/L (42-121); ALT ALANINE AMINOTRANSFERASE 21 IU/L (10-60); AST ASPARTATE AMINOTRANSFERASE 18 IU/L (10-42); BILIRUBIN,TOTAL 0.6 mg/dL (0.2-1.0); BUN - BLOOD UREA NITROGEN 23 mg/dL (6-20); CARBON DIOXIDE - CO2 30 mmol/L (21-32); CHLORIDE 101 mmol/L (101-111); CHOL/HDL RATIO 2.7 (<5.0); CHOLESTEROL 121 mg/dL; GFR - MDRD 74 (>89); GLUCOSE 161 mg/dL (74-104); HDL CHOLESTEROL 45 mg/dL; LDL CHOLESTEROL,CALCULATED 37 mg/dL; LDL/HDL RATIO 0.8 (<3.6); POTASSIUM 3.8 mmol/L (3.5-4.5); SODIUM 138 mmol/L (135-145); TOTAL PROTEIN 6.6 g/dL (6.4-8.9); TRIGLYCERIDES 195 mg/dL (48-352); VLDL CHOLESTEROL 39 mg/dL
[2023-02-05 18:36] LABS: THYROID STIMULATING HORMONE 2.63 uIU/mL (0.34-5.60)
[2023-02-05 22:09] LABS: ESTIMATED AVERAGE GLUCOSE 111 mg/dL (70-100); HEMOGLOBIN A1c% 5.5 % (4.27-6.07)
== END 2023-02-05 11:59 | disposition home or self-care (01) ==
LOC: LAB.N 11:58
PROVIDERS: ATTEND Nurse Practitioner Family
DX: I10 Essential (primary) hypertension (principal); N40.0 Benign prostatic hyperplasia without lower urinary tract symptoms; E78.5 Hyperlipidemia, unspecified; E11.9 Type 2 diabetes mellitus without complications
CPT/HCPCS: 36415; 80053; 80061; 83036; 83721; 84153; 84443; 85025

== ENCOUNTER 2023-02-05 14:09 | Emergency (ER) | payer MEDICARE, OTHER ==
[2023-02-05 14:33] LABS: BASOPHILS # (AUTO) 0.1 10^3/uL (0.0-0.1); BASOPHILS % (AUTO) 0.8 %; EOSINOPHILS # (AUTO) 0.2 10^3/uL (0.0-0.7); EOSINOPHILS % (AUTO) 2.2 %; HCT - HEMATOCRIT 43.7 % (42.0-52.0); HGB - HEMOGLOBIN 15.1 g/dL (14.0-18.0); LYMPHOCYTES # (AUTO) 1.2 10^3/uL (1.5-3.5); LYMPHOCYTES % (AUTO) 14.8 %; MEAN CORPUSCULAR HEMOGLOBIN 30.3 pg (27.0-31.0); MEAN CORPUSCULAR HGB CONC 34.6 g/dL (32.0-36.0); MEAN CORPUSCULAR VOLUME 87.6 fL (80.0-94.0); MEAN PLATELET VOLUME 8.7 fL (7.4-11.4); MONOCYTES # (AUTO) 0.8 10^3/uL (0.0-1.0); MONOCYTES % (AUTO) 10.1 %; NEUTROPHILS # (AUTO) 5.6 10^3/uL (1.5-6.6); NEUTROPHILS % (AUTO) 71.6 %; PLT - PLATELET COUNT 197 10^3/uL (130-450); RED BLOOD COUNT 4.99 10^6/uL (4.70-6.10); RED CELL DISTRIBUTION WIDTH 13.2 % (12.0-15.0); WHITE BLOOD COUNT 7.9 x10^3/uL (4.8-10.8)
[2023-02-05 14:53] LABS: ALBUMIN 4.5 g/dL (3.2-5.5); ALBUMIN/GLOBULIN RATIO 1.9 (1.0-2.2); BILIRUBIN,TOTAL 0.6 mg/dL (0.2-1.0); CALCIUM 9.9 mg/dL (8.5-10.3); POTASSIUM 3.9 mmol/L (3.5-4.5); TOTAL PROTEIN 6.9 g/dL (6.4-8.9)
--- NOTE | 2023-02-05 15:47 | ED Physician Documentation ---
PD HPI ABD PAIN - Stated complaint Stated Complaint: - Chief complaint Chief Complaint: Abd Pain - History obtained from History obtained from: Patient - Additional information Additional information: 67-year-old gentleman with history of enlarged prostate on doxazosin. He had a recent fall and is on narcotic analgesia and over the last couple of days has had urinary frequency and feeling of incomplete bladder emptying with suprapubic pressure. Review of Systems Constitutional: denies: Fever, Chills : reports: Dysuria, Frequency, Hesitancy, Unable to Void PD PAST MEDICAL HISTORY - Past Medical History Cardiovascular: Hypertension, High cholesterol Respiratory: Sleep apnea, CPAP use Neuro: Head injury, Peripheral neuropathy Endocrine/Autoimmune: Type 2 diabetes GI: GERD, Hiatal hernia : Benign prostate hypertrophy, Frequency HEENT: Chronic vision loss, Other Psych: Depression Musculoskeletal: Osteoarthritis, Other Derm: Psoriasis - Past Surgical History Past Surgical History: Yes General: Colonoscopy, Other Ortho: Spine surgery Neuro: Other HEENT: Tonsil/Adenoidectomy, Other - Present Medications Home Medications: Ambulatory Orders Medication Instructions Recorded Confirmed Acyclovir 400 mg PO TID PRN 10/29/15 01/27/23 Fluticasone [Flonase] 2 sprays MEREDITH QPM 10/29/15 01/27/23 Metoprolol Tartrate [Lopressor] 25 mg PO BID 10/29/15 01/27/23 Simvastatin 20 mg PO DAILY 10/29/15 01/27/23 Zolpidem [Ambien] 10 mg PO HS 10/29/15 01/27/23 hydroCHLOROthiazide [Hydrodiuril] 25 mg PO DAILY 10/29/15 01/27/23 Doxazosin Mesylate 8 mg PO DAILY 12/21/17 01/27/23 buPROPion [Wellbutrin Sr] 150 mg PO BID 12/21/17 01/27/23 metFORMIN [Glucophage] 500 mg PO BID 12/21/17 01/27/23 glipiZIDE [Glipizide] 5 mg PO BID 08/06/18 01/27/23 Cyclobenzaprine [Flexeril] 10 mg PO TID PRN #20 tablet 03/22/19 01/27/23 Semaglutide [Ozempic] 2 mg INJ OAW 01/27/23 01/27/23 Sildenafil Citrate 100 mg PO PRN PRN 01/27/23 01/27/23 Cyclobenzaprine [Flexeril] 10 mg PO TID PRN #15 tablet 01/28/23 Lidocaine Patch 5% [Lidoderm Patch] 1 patch TOP DAILY PRN #10 patch 01/28/23 Oxycodone HCl/Acetaminophen 1 each PO Q6H PRN #14 tablet 01/28/23 [Percocet 5-325 mg Tablet] - Allergies Allergies/Adverse Reactions: Allergies Allergy/AdvReac Type Severity Reaction Status Date / Time Penicillins Allergy Rash Verified 01/27/23 20:19 lisinopril AdvReac Unknown Verified 01/27/23 20:19 prednisone AdvReac Unknown Verified 01/27/23 20:19 - Social History Does the pt smoke?: No Smoking Status: Never smoker Does the pt drink ETOH?: No Does the pt have substance abuse?: No - Immunizations Immunizations are current?: Yes - POLST Patient has POLST: No PD ED PE NORMAL - Vitals Vital signs reviewed: Yes - General General: Alert and oriented X 3, No acute distress - Abdomen Abdomen: Normal bowel sounds, Soft, Other (Some suprapubic tenderness and sensation of large bladder) - Back Back: No CVA TTP - Neuro Neuro: Alert and oriented X 3, Normal speech Results - Vitals Vitals: Vital Signs - 24 hr 02/05/23 02/05/23 14:10 16:02 Temperature 36.5 C Heart Rate 88 87 Respiratory 16 16 Rate Blood Pressure 131/96 H 125/87 H O2 Saturation 96 97 Oxygen O2 Source Room air - Labs Labs: Laboratory Tests 02/05/23 02/05/23 02/05/23 14:28 14:28 15:53 WBC 7.9 RBC 4.99 Hgb 15.1 Hct 43.7 MCV 87.6 MCH 30.3 MCHC 34.6 RDW 13.2 Plt Count 197 MPV 8.7 Neut # (Auto) 5.6 Lymph # (Auto) 1.2 L Jerauld # (Auto) 0.8 Eos # (Auto) 0.2 Baso # (Auto) 0.1 Absolute Nucleated RBC 0.00 Nucleated RBC % 0.0 Sodium 137 Potassium 3.9 Chloride 101 Carbon Dioxide 30 Anion Gap 6.0 BUN 23 H Creatinine 1.0 Estimated GFR (MDRD) 74 L Glucose 136 H Calcium 9.9 Total Bilirubin 0.6 AST 17 ALT 22 Alkaline Phosphatase 85 Total Protein 6.9 Albumin 4.5 Globulin 2.4 Albumin/Globulin Ratio 1.9 Lipase 48 Urine Color YELLOW Urine Clarity CLEAR Urine pH 5.5 Ur Specific Horatio >=1.030 H Urine Protein NEGATIVE Urine Glucose (UA) NEGATIVE Urine Ketones NEGATIVE Urine Occult Blood NEGATIVE Urine Nitrite NEGATIVE Urine Bilirubin NEGATIVE Urine Urobilinogen 0.2 (NORMAL) Ur Leukocyte Esterase NEGATIVE Ur Microscopic Review NOT INDICATED Urine Culture Comments NOT INDICATED PD Medical Decision Making - ED course ED course: 67-year-old gentleman presents with symptoms of urinary retention while on narcotics with a known large prostate. Per the nurses bladder scan was 0 but he is a large fellow and I did a bedside ultrasound which showed a modestly dilated bladder. Hernandez was placed and he put out about 250 mL but he really did not tolerate the Hernandez. Given the relatively small volume of postvoid residual the Hernandez was removed at his request and he will tolerate the symptoms of urinary retention and try to wean himself off the narcotics and follow-up with urology. Departure - Departure Disposition: 01 Home, Self Care Clinical Impression: Urinary retention Condition: Good Record reviewed to determine appropriate education?: Yes Instructions: ED Prostate Enlarged, ED Retention Urinary Male Follow-Up: Bill Starkey MD [Provider Admit Priv/Credential] - Comments: You were seen today for symptoms of urinary retention in the setting of current narcotic use related to your recent injuries. You also have a known large prostate. Recommend trying to decrease narcotic use is much as possible and follow-up with urology. Return if worse or other new symptoms develop. Forms: PCP List
[2023-02-05 16:02] LABS: BILIRUBIN,URINE NEGATIVE (NEGATIVE); GLUCOSE, URINE (UA) NEGATIVE (NEGATIVE); KETONES,URINE (UA) NEGATIVE (NEGATIVE); LEUKOCYTE ESTERASE, URINE NEGATIVE (NEGATIVE); NITRITE,URINE NEGATIVE (NEGATIVE); OCCULT BLOOD,URINE NEGATIVE (NEGATIVE); PH,URINE 5.5 PH (5.0-7.5); PROTEIN,URINE NEGATIVE (NEGATIVE); UROBILINOGEN,URINE 0.2 (NORMAL) E.U./dL (NORMAL)
[2023-02-05 16:03] LABS: CLARITY,URINE CLEAR (CLEAR)
[2023-02-05 16:07] VITALS: BP 125/87; O2SAT 97
== END 2023-02-05 17:28 | disposition home or self-care (01) ==
LOC: ED 14:09
DX: N40.1 Benign prostatic hyperplasia with lower urinary tract symptoms (principal); R33.8 Other retention of urine; Z79.891 Long term (current) use of opiate analgesic; I10 Essential (primary) hypertension; N40.0 Benign prostatic hyperplasia without lower urinary tract symptoms; E78.5 Hyperlipidemia, unspecified; E11.9 Type 2 diabetes mellitus without complications
CPT/HCPCS: 36415; 51702; 51798; 80053; 80061; 81001; 81003; 83036; 83690; 83721; 84153; 84443; 85025; 87086; 99283

== ENCOUNTER 2023-04-20 15:11 | Outpatient (CLI) | payer MEDICARE, OTHER ==
--- NOTE | 2023-04-21 11:43 | XRAY Report ---
PROCEDURE: Lumbar Spine w/Flex/Ext INDICATIONS: PARS DEFECT TECHNIQUE: AP & Lateral views of the lumbar spine were acquired, followed by flexion & extension marilee ding views of the lumbar spine as well as oblique views. COMPARISON: CT lumbar spine 01/27/2023. FINDINGS: Bones: 5 [id number] vertebrae are present. Mild dextrocurvature of the lumbar spine. Grade 2 a nterolisthesis of L5 on S1 with bilateral pars interarticularis defects. Moderate compression deformi ty of L2. There are multilevel degenerative changes of the lumbar spine with facet arthropathy and di sc height loss with degenerative endplate changes and marginal spurring. No suspicious bony lesions. Diffusely decreased osseous mineralization. Soft tissues: Overlying bowel gas pattern is normal. No suspicious soft tissue calcifications. Athe rosclerotic vascular calcifications. Flexion/extension: There is limited range of motion, with preserved alignment. IMPRESSION: 1.Multilevel degenerative changes of the lumbar spine with grade 2 anterolisthesis of L5 on S1, incre ased compared to 01/27/2023, with bilateral pars interarticularis defects. 2.Moderate compression deformity of L2 which is new compared to 01/27/2023. If indicated, MRI can be o btained for further evaluation. Reviewed by: John Arriola MD on 04/21/2023 11:42 AM PST Approved by: John Arriola MD on 04/21/2023 11:42 AM PST Station ID: [id number]
== END 2023-04-20 15:12 | disposition home or self-care (01) ==
LOC: DI 15:11
PROVIDERS: ATTEND Pain Medicine Pain Medicine
DX: M47.816 Spondylosis without myelopathy or radiculopathy, lumbar region (principal); M43.17 Spondylolisthesis, lumbosacral region; M48.56XA Collapsed vertebra, not elsewhere classified, lumbar region, initial encounter for fracture

== ENCOUNTER 2023-06-07 16:26 | Outpatient (CLI) | payer MEDICARE, OTHER ==
[2023-06-07] MEDS: ALBUTEROL 1 PUFF INH STA (17:48)
== END 2023-06-07 16:27 | disposition home or self-care (01) ==
LOC: RT 16:26
PROVIDERS: ATTEND Nurse Practitioner Family
DX: R06.09 Other forms of dyspnea (principal); J45.909 Unspecified asthma, uncomplicated; R07.9 Chest pain, unspecified
CPT/HCPCS: 94060

== ENCOUNTER 2024-01-11 13:46 | Outpatient (CLI) | payer MEDICARE, OTHER ==
[2024-01-11 14:08] LABS: BASOPHILS # (AUTO) 0.1 10^3/uL (0.0-0.1); BASOPHILS % (AUTO) 0.8 %; EOSINOPHILS # (AUTO) 0.1 10^3/uL (0.0-0.7); HGB - HEMOGLOBIN 14.4 g/dL (14.0-18.0); LYMPHOCYTES # (AUTO) 1.4 10^3/uL (1.5-3.5); MEAN CORPUSCULAR HEMOGLOBIN 30.6 pg (27.0-31.0); MEAN CORPUSCULAR HGB CONC 34.3 g/dL (32.0-36.0); MEAN CORPUSCULAR VOLUME 89.4 fL (80.0-94.0); MEAN PLATELET VOLUME 8.7 fL (7.4-11.4); MONOCYTES # (AUTO) 0.6 10^3/uL (0.0-1.0); NEUTROPHILS % (AUTO) 69.6 %; PLT - PLATELET COUNT 171 10^3/uL (130-450); RED CELL DISTRIBUTION WIDTH 13.2 % (12.0-15.0); WHITE BLOOD COUNT 7.1 x10^3/uL (4.8-10.8)
[2024-01-11 14:25] LABS: ALBUMIN 4.4 g/dL (3.2-5.5); ALBUMIN/GLOBULIN RATIO 2.1 (1.0-2.2); ALKALINE PHOSPHATASE 47 IU/L (42-121); ALT ALANINE AMINOTRANSFERASE 28 IU/L (10-60); AST ASPARTATE AMINOTRANSFERASE 16 IU/L (10-42); BILIRUBIN,TOTAL 0.7 mg/dL (0.2-1.0); BUN - BLOOD UREA NITROGEN 14 mg/dL (6-20); CARBON DIOXIDE - CO2 28 mmol/L (21-32); CHLORIDE 102 mmol/L (101-111); CHOL/HDL RATIO 2.4 (<5.0); CHOLESTEROL 138 mg/dL; CREATININE 0.8 mg/dL (0.6-1.3); GFR - MDRD 96 (>89); GLUCOSE 127 mg/dL (74-104); HDL CHOLESTEROL 57 mg/dL; LDL CHOLESTEROL,CALCULATED 63 mg/dL; LDL/HDL RATIO 1.1 (<3.6); POTASSIUM 4.3 mmol/L (3.5-4.5); SODIUM 135 mmol/L (135-145); TOTAL PROTEIN 6.5 g/dL (6.4-8.9); TRIGLYCERIDES 88 mg/dL; VLDL CHOLESTEROL 18 mg/dL
[2024-01-11 20:42] LABS: ESTIMATED AVERAGE GLUCOSE 111 mg/dL (70-100); HEMOGLOBIN A1c% 5.5 % (4.27-6.07)
== END 2024-01-11 13:47 | disposition home or self-care (01) ==
LOC: LAB 13:46
PROVIDERS: ATTEND Nurse Practitioner Family
DX: E11.9 Type 2 diabetes mellitus without complications (principal); E78.5 Hyperlipidemia, unspecified; N40.1 Benign prostatic hyperplasia with lower urinary tract symptoms; N13.8 Other obstructive and reflux uropathy; I10 Essential (primary) hypertension
CPT/HCPCS: 36415; 80053; 80061; 83036; 83721; 84153; 85025

== ENCOUNTER 2025-01-12 06:31 | Observation (INO) ==
[2025-01-12] MEDS: LACTATED RINGERS 1,000 ML IV PRN (06:59)
[2025-01-12 07:36] LABS: INR 1.0 (0.8-1.2); PT - PROTHROMBIN TIME 10.9 secs (9.9-12.6)
[2025-01-12] MEDS ORDERED: MIDAZOLAM 2 MG/2 ML VIAL ONE ×2 (07:50→10:14)
[2025-01-12] MEDS ORDERED: PROPOFOL 200 MG/20 ML VIAL IVP ONE (07:50)
[2025-01-12] MEDS ORDERED: ROCURONIUM 50 MG/5 ML VIAL ONE (07:50)
[2025-01-12] MEDS ORDERED: LIDOCAINE-PF 2% 10 ML AMP SUBQ ONE (07:50)
[2025-01-12] MEDS ORDERED: fentaNYL 100 MCG/2 ML VIAL ONE ×3 (07:50→10:11)
[2025-01-12] MEDS ORDERED: SUGAMMADEX 200 MG/2 ML VIAL IVP ONE (07:51)
[2025-01-12] MEDS ORDERED: ONDANSETRON 4 MG/2 ML VIAL ONE (08:08)
[2025-01-12] MEDS ORDERED: LIDOCAINE 2% URO-JET 5 ML SYRINGE UR ONE ×3 (08:20→10:26)
--- NOTE | 2025-01-12 08:55 | ANESTHESIA PROCEDURE NOTE ---
Pre-Anesthesia VS, & Labs Diagnosis Surgical Diagnosis:: prostate cancer Procedure Procedure: TURP Vitals Vital Signs: Temp Pulse Resp BP Pulse Ox 36.7 C 76 18 139/89 H 99 01/12/25 06:43 01/12/25 07:00 01/12/25 07:00 01/12/25 07:00 01/12/25 07:00 NPO NPO: >8 hours Lab Results Current Lab Results: Laboratory Tests 01/12/25 07:07: PT 10.9, INR 1.0 01/12/25 06:54: POC Whole Bld Glucose 128 Meds/Allgy Home Medications Ambulatory Orders Medication Instructions Recorded Confirmed acyclovir 400 mg tablet 400 mg PO TID PRN cold sores 03/04/24 01/12/25 blood sugar diagnostic (Blood 03/04/24 11/13/24 Glucose Test strips) blood-glucose meter 03/04/24 11/13/24 finasteride 5 mg tablet 5 mg PO QDAY 03/04/24 fluticasone propionate 50 2 spray intranasal BID 03/0401/12/25 mcg/actuation nasal spray,suspension glipizide 5 mg tablet 5 mg PO BID 03/04/24 5 hydrochlorothiazide 25 mg tablet 25 mg PO QDAY 4 01/12/25 lancets 30 gauge 03/04/24 11/13/24 loperamide 2 mg tablet 4 mg PO QID PRN loose stool 03/04/24 01/08/25 sildenafil 25 mg tablet (Viagra) 20 mg PO QDAY PRN sex ual activity 03/04/24 01/12/25 simvastatin 20 mg tablet See Rx Instructions .Route 1 06/26/23 01/12/25 .COMPLEX #270 tabs doxazosin 8 mg tablet 8 mg PO QPM #90 tabs 5 01/12/25 ibuprofen 800 mg tablet See Rx Instructions .Route 0 10/15/24 01/12/25 .COMPLEX #60 tabs semaglutide (weight loss) 2.4 2.4 mg (0.75 mL) subcut QWEEK 11/05/24 01/08/25 mg/0.75 mL subcutaneous pen obesity #9 mL injector metoprolol succinate 100 mg 100 mg PO QDAY HIgh blood pressure 11/06/24 01/12/25 tablet,extended release 24 hr #90 tabs bupropion HCl 150 mg tablet,12 hr 150 mg PO DAILY 12/2901/12/25 sustained-release cetirizine 10 mg tablet (24Hour 10 mg PO DAILY PRN all ergy symptoms 01/08/25 01/12/25 Allergy) zolpidem 10 mg tablet 10 mg PO .qhs PRN insomnia' #90 01/10/25 01/12/25 tabs Allergies Allergies Allergy/AdvReac Type Severity Reaction Status Date / Time Penicillins Allergy Rash Verified 01/12/25 06:53 lisinopril AdvReac Shortness Verified 01/12/25 06:53 of breath, wheezing prednisone AdvReac Agitation Verified 01/12/25 06:53 PFSH Active Problems All Active Problems Left cervical radiculopathy (Acute) Urinary hesitancy due to benign prostatic hyperplasia (Acute) Essential hypertension (Acute) Cervical radiculopathy (Acute) Morbid obesity with BMI of 40.0-44.9, adult (Acute) Medication management (Chronic) Chronic depression (Chronic) Diabetes mellitus type 2 with complications (Chronic) Diabetes mellitus type 2, controlled (Chronic) Sedentary lifestyle (Chronic) Right lower lobe lung mass (Chronic 01/17/22) Erectile dysfunction of organic origin (Chronic 01/18/15) Scoliosis of cervical region due to degenerative disease of spine in adult (Chronic 01/03/18) Situational anxiety (Chronic 04/03/19) Osteoarthritis, knee (Chronic 03/01/07) Memory impairment (Chronic 01/09/23) Marital problem (Chronic 07/11/22) Insomnia (Chronic 04/06/22) Hyperlipidemia (Chronic 10/26/08) Hearing loss, bilateral (Chronic 08/13/18) Neuropathic pain (Chronic) Medical History Medical History Nocturia (12/19/21) Benign essential hypertension (04/11/06) Herpes labialis (08/05/21) Morbid obesity with BMI of 45.0-49.9, adult BMI 45.0-49.9, adult (06/06/21) Arthritis of both knees (04/10/17) Arthritis of left shoulder region (06/17/18) 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 (01/30/23) Dyspnea on exertion (05/23/23) Varicose veins of lower extremities with ulcer (12/16/15) Herpes labialis (03/20/12) Memory loss (12/17/19) Chronic bilateral low back pain (03/06/23) Abnormal liver function tests (12/06/16) Irritable bowel syndrome, unspecified (01/09/17) Eczema (03/08/09) Vitamin D deficiency, unspecified (10/26/08) BPH without urinary obstruction (02/08/23) 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) Right inguinal hernia (10/14/15) Reactive airway disease (06/03/09) Other fracture of shaft of right fibula, sequela (06/05/17) Chronic venous hypertension with inflammation involving both sides (12/13/18) Adrenal nodule (01/17/22) Surgical History Surgical History S/P pneumonectomy LLL mass 08/2022- Dr Angie De La Cruz History of arthroplasty of left knee History of inguinal hernia repair H/O cervical discectomy History of carpal tunnel release Family History Family History Mother Breast cancer Alcoholism Arthritis Depressed Osteoporosis Father CVA (cerebral vascular accident) Heart attack Social History Social History Smoking Status: Never smoker Second hand tobacco smoke exposure: No Do you dip or chew tobacco?: No Do you vape?: No Living arrangement: At home Marital Status: Living Condition: With spouse/s.o. Support Person: Yes Physical Activity: None Do you feel safe in your home environment?: Yes History of physical, verbal, emotional, or financial abuse?: No ETOH Use: None Substance Use: denies use Occupation - Current: teacher (music) Retired: Yes Service: No POLST Patient has POLST: No Anesthesia Exam (Expanded) Exam General: Alert, Oriented x3 and Cooperative Dental: WNL Mouth Openin Fingerbreadth Neck Mobility: Reduced Mallampati classification: II Thyromental Distance: less than 4 cm Respiratory: Decreased breath sounds and Accessory muscle use Cardiovascular: Regular rate Exam Exam Vital Signs: Vital Signs x48h Temp Pulse Resp BP Pulse Ox 01/12/25 07:00 76 18 139/89 H 99 01/12/25 06:43 36.7 C 81 22 168/92 H 99 Plan Plan Anesthesia Type: General Consent for Procedure(s) Verified and Reviewed: Yes Code Status: Attempt Resuscitation ASA Classification ASA classification: 3-Severe systemic disease Is this case an emergency?: No
[2025-01-12] MEDS ORDERED: ATROPINE ABBOJECT 1 MG/10 ML SYRINGE IVP PRN (08:58)
[2025-01-12] MEDS ORDERED: METOCLOPRAMIDE 10 MG/2 ML VIAL IVP PRN (08:58)
[2025-01-12] MEDS ORDERED: ePHEDrine 50 MG/ML VIAL IVP PRN (08:58)
[2025-01-12] MEDS ORDERED: NALOXONE 0.4 MG/ML VIAL IVP PRN (08:58)
[2025-01-12] MEDS ORDERED: MORPHINE 2 MG/ML CARPUJECT IVP PRN (08:58)
[2025-01-12] MEDS ORDERED: ONDANSETRON 4 MG/2 ML VIAL IVP PRN ×2 (08:58→09:24)
[2025-01-12] MEDS: ceFAZolin (2G) 2 GM in SODIUM CHLORIDE 0.9% MINIBAG 100 ML IV ONE (09:26)
[2025-01-12] MEDS: fentaNYL 100 MCG/2 ML VIAL IVP PRN (09:26)
[2025-01-12] MEDS ORDERED: OPIUM/BELLADONNA 60/16.2MG SUPPOSITORY PR ONE (09:29)
--- NOTE | 2025-01-12 09:31 | OPERATIVE REPORT ---
Operative Report General Admit Date: 01/12/25 Procedure Data: Operation Date: 01/12/25 07:30 Proposed Procedures p Transurethral Resection Prostate(Not Applicable) - Bill Starkey MD Actual Procedures p Transurethral Resection Prostate - Bill Starkey MD Anesthesia Type General Case Staff Anesthesia Provider: Taylor Cramer Case Times Procedure Start: 01/12/25 08:14 Procedure End: 01/12/25 09:10 Time out: 01/12/25 08:14 Procedure Note Estimated Blood Loss (ml): 50 Pathology: prostate chips Findings: very large prostate long resectoscope Complications: changed catheter in PACU for prostate chip clog Other Other Information/Narrative: After informed consent was obtained patient was brought to the OR and laid in the supine position. Patient was anesthetized per anesthesia protocols and prepped and draped in the usual sterile fashion in the dorsal lithotomy position. A formal timeout was performed reconfirming the patient, procedure and laterality. 26 Mosotho resectoscope was advanced into the prostatic urethra and he was noted to have quite a large wide prostate. For this reason we switched over to the long resectoscope. We were then able to advance into the bladder which showed 3+ trabeculations. He had a large median lobe and a large lateral lobe. Using loop electrocautery and the bipolar setting we resected the median lobe at the 5:00 and 7 o'clock position to the verumontanum. We then took down the median lobe intervening tissue. Spot cautery was used for hemostasis. We then took down the left lobe and right lobe.-year-old white channel at the end of the case. We evacuated out the prostate chips and sent them for analysis. A 22 Mosotho three-way Hernandez catheter was placed with 30 cc in the balloon. He was reversed of anesthesia and brought to the PACU. In the PACU his catheter was poorly draining and was eventually changed out and found to have a prostate chip clogging the lumen. A new 22 Mosotho three-way Hernandez catheter was placed which point he did much better but was having some bladder spasms. He was admitted overnight for seems bladder irrigation and monitoring
[2025-01-12] MEDS ORDERED: HYDROmorphone 0.5 MG/0.5 ML SYRINGE ONE ×2 (09:44→10:03)
[2025-01-12] MEDS: HYDROmorphone 0.5 MG/0.5 ML SYRINGE IVP PRN (09:45)
[2025-01-12] MEDS: LACTATED RINGERS 1,000 ML IV SCH (10:05)
[2025-01-12] MEDS: OPIUM/BELLADONNA 60/16.2MG SUPPOSITORY PR PRN (10:18)
[2025-01-12] MEDS: MIDAZOLAM 2 MG/2 ML VIAL IVP ONE (10:18)
[2025-01-12] MEDS: HYDROcod/ACETAM 5/325 MG TABLET PO PRN (11:48)
--- NOTE | 2025-01-12 12:55 | ANESTHESIA POST OP EVALUATION ---
Anesthesia Post Eval Post Anesthesia Eval Vitals: Last Vital Signs Temp 36.6 C 01/12/25 12:33 Pulse 95 01/12/25 12:33 Resp 18 01/12/25 12:33 BP 130/84 01/12/25 12:33 Pulse Ox 96 01/12/25 12:33 CV Function Including HR & BP: Stable Pain Control: Satisfactory Nausea & Vomiting: Negative Mental Status: Baseline Respiratory Status: Airway Patent Hydration Status: Satisfactory Anesthesia Complications: None
--- NOTE | 2025-01-12 13:14 | PHARMACY PROGRESS NOTE ---
Best Possible Medication History Admit Date and Time: 01/12/25 [id number] Home Medications Medication Instructions Recorded Confirmed Type acyclovir 400 mg tablet 400 mg PO TID PRN cold sores 03/04/24 01/12/25 History blood sugar diagnostic (Blood 03/04/24 11/13/24 Histo ry Glucose Test strips) blood-glucose meter 03/04/24 11/13/24 History finasteride 5 mg tablet 5 mg PO QDAY 03/04/24 History fluticasone propionate 50 2 spray intranasal BID 03/0401/12/25 History mcg/actuation nasal spray,suspension glipizide 5 mg tablet 5 mg PO BID 03/04/24 5 History hydrochlorothiazide 25 mg tablet 25 mg PO QDAY 4 01/12/25 History lancets 30 gauge 03/04/24 11/13/24 History loperamide 2 mg tablet 4 mg PO QID PRN loose stool 03/04/24 01/08/25 History sildenafil 25 mg tablet (Viagra) 20 mg PO QDAY PRN sex ual activity 03/04/24 01/12/25 History simvastatin 20 mg tablet See Rx Instructions .Route 1 06/26/23 01/12/25 Rx .COMPLEX #270 tabs doxazosin 8 mg tablet 8 mg PO QPM #90 tabs 5 01/12/25 Rx ibuprofen 800 mg tablet See Rx Instructions .Route 0 10/15/24 01/12/25 Rx .COMPLEX #60 tabs semaglutide (weight loss) 2.4 2.4 mg (0.75 mL) subcut QWEEK 11/05/24 01/08/25 Rx mg/0.75 mL subcutaneous pen obesity #9 mL injector metoprolol succinate 100 mg 100 mg PO QDAY HIgh blood pressure 11/06/24 01/12/25 Rx tablet,extended release 24 hr #90 tabs bupropion HCl 150 mg tablet,12 hr 150 mg PO DAILY 12/2901/12/25 History sustained-release cetirizine 10 mg tablet (24Hour 10 mg PO DAILY PRN all ergy symptoms 01/08/25 01/12/25 History Allergy) zolpidem 10 mg tablet 10 mg PO .qhs PRN insomnia' #90 01/10/25 01/12/25 Rx tabs hydrocodone 5 mg-acetaminophen 325 1 tab PO Q4H PRN Pa in #10 tabs 01/12/25 Rx mg tablet Processed by: Nursing Medications reviewed in ED?: No Medication History completed: Yes Patient Interview: Completed Secondary Source(s): Physician records, Pharmacy records and Insurance records [facility] Statement: As the person ultimately responsible for medication therapy, providers are able to order a medication from an existing home medication list in [facility] via the "Reconcile Routine" prior to Confirmation of that medication by shipping support clerk. Such practice is discouraged except when the physician, in their clinical judgment, deems that a medical need exists for a medication without regard to previous use.
[2025-01-12] MEDS ORDERED: ZOLPIDEM 5 MG TABLET PO PRN (13:44)
[2025-01-12] MEDS: HYDROcod/ACETAM 5/325 MG TABLET PO ONE (15:17)
[2025-01-13 07:56] VITALS: TEMP 97.9
[2025-01-13] MEDS: METOPROLOL SUCCINATE 50 MG TABLET PO SCH (08:27)
--- NOTE | 2025-01-13 08:35 | PROVIDER PROGRESS NOTE ---
Subjective Prog Note Date Prog Note Date: 01/13/25 Prog Note Time: 08:33 Subjective Pt reports feeling: Improved Subjective: No acute events overnight. Patient feels well. Occasional bladder spasms. Current Medications Current Medications Current Medications: Current Medications Generic Name Dose Route Start Last Admin Trade Name Freq PRN Reason Stop Dose Admin Hydrocodone Bitart/Acetaminophen 1 tab 01/12/25 09:24 01/13/25 04:02 Hydrocod/Acetam 5/325 Mg Tablet PO 1 tab Q4HR PRN Administration Moderate Pain (Level 4-6) Belladonna Alkaloids/Opium 1 supp 01/12/25 09:28 01/12/25 22:13 Opium/Belladonna 60/16.2mg Suppository TN 1 supp Q6HR PRN Administration Bladder Spasms Glipizide 5 mg 01/13/25 07:30 01/13/25 06:37 Glipizide 5 Mg Tablet PO 5 mg 0730 RADHA Administration Hydrochlorothiazide 25 mg 01/13/25 09:00 01/13/25 08:26 Hydrochlorothiazide 25 Mg Tablet PO 25 mg DAILY RADHA Administration Lactated Ringer's 1,000 mls @ 0 mls/hr 01/12/25 06:13 01/12/25 10:05 Lr IV Infused .Q0M PRN Infusion preop TKO Metoprolol Succinate 100 mg 01/13/25 09:00 01/13/25 08:27 Metoprolol Succinate 50 Mg Tablet PO 100 mg DAILY RADHA Administration Ondansetron HCl 4 mg 01/12/25 09:24 Ondansetron 4 Mg/2 Ml Vial IVP Q6HR PRN Nausea / Vomiting Zolpidem Tartrate 10 mg 01/12/25 13:44 Zolpidem 5 Mg Tablet PO QPM PRN Insomnia Objective Vital Signs/Intake & Output Reviewed Vital Signs: Yes Vital Signs: Vital Signs x48h Temp Pulse Resp BP Pulse Ox 01/13/25 07:54 36.6 C 81 16 126/68 97 01/13/25 04:12 36.8 C 80 20 132/80 H 97 Intake & Output: Intake & Output 01/10/25 01/11/25 01/12/25 01/13/25 23:59 23:59 23:59 23:59 Intake Total 99442 / 38326 05954 / 52897 Output Total 04935 / 80907 13104 / 25673 Balance -7730 / -7730 -8500 / -8500 Weight (kg) 142 kg Objective General Appearance: positive No acute distress (cbi clear.) Lab Results Other Labs: Lab Results x24hrs 01/12/25 Range/Units 09:19 POC Whole Bld Glucose 167 (70-100) mg/dL Assessment/Plan Problem List (1) Hematuria: Impression: admitted overnight for hematuria CBI and pain control. Doing very well. Home today with Hernandez catheter. This will be removed on . Clamp CBI. Qualifiers: Hematuria type: gross Qualified Code(s): R31.0 - Gross hematuria
[2025-01-13 13:35] VITALS: BP 124/72; O2SAT 99
[2025-01-14] MEDS ORDERED: METOPROLOL SUCCINATE 50 MG TABLET PO SCH (09:00)
--- NOTE | 2025-01-14 15:45 | Discharge Summary ---
Discharge Summary Admit Date: 01/12/25 Discharge Date: 01/13/25 Discharging Provider: Lalito Primary Care Provider: Petty Code Status: Attempt Resuscitation DIAGNOSES Admission Diagnoses: hematuria Discharge Diagnoses with Status of Each Condition: hematuria-resolved HPI History of Present Illness: Javier was admitted after a TURP procedure for continued bladder spasms and pain and hematuria and was kept on continuous bladder irrigation overnight HOSPITAL COURSE Hospital Course: Postop day 1 after his TURP procedure his urine cleared and his catheter was clamped. He did well and so he was discharged home on postop day 1 hemodynamically stable with a catheter in place. He will return to the office on January 15 for catheter removal ALLERGIES Allergies Allergy/AdvReac Type Severity Reaction Status Date / Time Penicillins Allergy Rash Verified 01/12/25 06:53 lisinopril AdvReac Shortness Verified 01/12/25 06:53 of breath, wheezing prednisone AdvReac Agitation Verified 01/12/25 06:53 MEDICATIONS Ambulatory Orders Medication Instructions Recorded Confirmed acyclovir 400 mg tablet 400 mg PO TID PRN cold sores 03/04/24 01/12/25 blood sugar diagnostic (Blood 03/04/24 11/13/24 Glucose Test strips) blood-glucose meter 03/04/24 11/13/24 finasteride 5 mg tablet 5 mg PO QDAY 03/04/24 fluticasone propionate 50 2 spray intranasal BID 03/0401/12/25 mcg/actuation nasal spray,suspension glipizide 5 mg tablet 5 mg PO BID 03/04/24 5 hydrochlorothiazide 25 mg tablet 25 mg PO QDAY 4 01/12/25 lancets 30 gauge 03/04/24 11/13/24 loperamide 2 mg tablet 4 mg PO QID PRN loose stool 03/04/24 01/08/25 sildenafil 25 mg tablet (Viagra) 20 mg PO QDAY PRN sex ual activity 03/04/24 01/12/25 simvastatin 20 mg tablet See Rx Instructions .Route 1 06/26/23 01/12/25 .COMPLEX #270 tabs doxazosin 8 mg tablet 8 mg PO QPM #90 tabs 5 01/12/25 ibuprofen 800 mg tablet See Rx Instructions .Route 0 10/15/24 01/12/25 .COMPLEX #60 tabs semaglutide (weight loss) 2.4 2.4 mg (0.75 mL) subcut QWEEK 11/05/24 01/08/25 mg/0.75 mL subcutaneous pen obesity #9 mL injector metoprolol succinate 100 mg 100 mg PO QDAY HIgh blood pressure 11/06/24 01/12/25 tablet,extended release 24 hr #90 tabs bupropion HCl 150 mg tablet,12 hr 150 mg PO DAILY 12/2901/12/25 sustained-release cetirizine 10 mg tablet (24Hour 10 mg PO DAILY PRN all ergy symptoms 01/08/25 01/12/25 Allergy) zolpidem 10 mg tablet 10 mg PO .qhs PRN insomnia' #90 01/10/25 01/12/25 tabs hydrocodone 5 mg-acetaminophen 325 1 tab PO Q4H PRN Pa in #10 tabs 01/12/25 mg tablet oxybutynin chloride 5 mg tablet 5 mg PO TID #9 tabs PHYSICAL EXAM AT DISCHARGE General Appearance: positive No acute distress (arcos output cyu) FOLLOW UP Follow Up: [address] Starkey TIME SPENT Time Spent in Discharge (Minutes): 15 Discharge Plan Discharge Patient Disposition: 01 Home, Self Care Condition: Good Medically Cleared Date:: 01/13/25 Prescriptions: New hydrocodone-acetaminophen 5-325 mg tablet 1 tab PO Q4H PRN (Reason: Pain) Qty: 10 0RF oxybutynin chloride 5 mg tablet 5 mg PO TID Qty: 9 0RF Continued simvastatin 20 mg tablet See Rx Instructions .ROUTE .COMPLEX Qty: 270 3RF Dose Instruction: TAKE 1 TABLET BY MOUTH EACH EVENING AT BEDTIME Rx Instructions: TAKE 1 TABLET BY MOUTH EACH EVENING AT BEDTIME doxazosin 8 mg tablet 8 mg PO QPM Qty: 90 2RF ibuprofen 800 mg tablet See Rx Instructions .ROUTE .COMPLEX Qty: 60 1RF Dose Instruction: TAKE 1 TABLET BY MOUTH THREE TIMES A DAY Rx Instructions: TAKE 1 TABLET BY MOUTH THREE TIMES A DAY metoprolol succinate 100 mg tablet extended release 24 hr 100 mg PO QDAY Qty: 90 1RF zolpidem 10 mg tablet 10 mg PO .qhs PRN (Reason: insomnia') Qty: 90 0RF hydrochlorothiazide 25 mg tablet 25 mg PO QDAY acyclovir 400 mg tablet 400 mg PO TID PRN (Reason: cold sores) Patient Comments: several months ago fluticasone propionate 50 mcg/actuation spray,suspension 2 spray intranasal BID Rx Instructions: Use 2 sprays into both nostrils twice a day glipizide 5 mg tablet 5 mg PO BID Rx Instructions: Take 1 tablet by mouth twice a day with breakfast and dinner cetirizine [24Hour Allergy] 10 mg tablet 10 mg PO DAILY PRN (Reason: allergy symptoms) bupropion HCl 150 mg tablet sustained-release 12 hr 150 mg PO DAILY finasteride 5 mg tablet 5 mg PO QDAY loperamide 2 mg tablet 4 mg PO QID PRN (Reason: loose stool) Rx Instructions: Take 2 tablet by mouth with loose stool and repeat with every loose stool up to 8 tablets in 24 hours sildenafil [Viagra] 25 mg tablet 20 mg PO QDAY PRN (Reason: sexual activity) (DME) Blood Glucose Test Strip See Rx Instructions .Route Rx Instructions: As directed (DME) lancets 30 gauge misc See Rx Instructions .Route Rx Instructions: As directed (DME) blood-glucose meter Misc See Rx Instructions .Route Rx Instructions: As directed semaglutide (weight loss) 2.4 mg/0.75 mL pen injector 2.4 mg subcut QWEEK Qty: 9 3RF Activity Restrictions/Additional Instructions: DIET - You may resume your normal diet if there is no nausea or vomiting. You may want to avoid spicy, greasy, or heavy foods today to minimize gas. - If nausea or vomiting occurs, don't eat or drink anything for one hour. Then start drinking small amounts of clear liquids. Later, add crackers, gradually building up to your usual diet. ACTIVITY INSTRUCTIONS * No heavy lifting for 2 weeks (>10lbs) * No sexual activity with catheter in place * No bathing with catheter in place. OK to shower DISCHARGE INSTRUCTIONS * Call for fever >100.4F * It is normal to have blood in or around the catheter for the next few days * Our office will contact you for follow-up on , January 15 for Arcos catheter removal MEDICATIONS * resume normal medications * Take tylenol as needed for pain * Take narcotic pain medications for rescue pain * Take oxybutynin for bladder spasms ANESTHESIA PRECAUTIONS Anesthesia and medications given during surgery remain in your body up to 24 hours. This may slow reaction time and/or decrease coordination. FOR THE NEXT 24 HOURS: - Have a responsible person with you - Avoid any activity that requires you to be alert and coordinated - DO NOT DRIVE a motor vehicle for 24 hours or as long as you are taking opoid pain medication - Do not drink alcoholic beverages - Do not smoke unattended Patient Date Escort Date RN Date Interventions: Discharge Last Done: 01/13/25 13:31 Discharge Checklist - Nursing Last Done: 01/13/25 13:32 Discharge Vital Signs (30 Minutes) Last Done: 01/13/25 13:00 Print Language: Bulgarian Patient Instructions: Surg Dc, TURP, Urinary Catheter Bag Care, Indwelling Urinary Catheter Dc Follow-up Care: Bill Starkey MD [Provider Admit Priv/Credential, Urology] Ana Rosa Dove ARNP [Primary Care Provider, Family Practice] Vitals documented within 30 minutes of discharge?: Yes (Yes)
== END 2025-01-13 13:30 | disposition home or self-care (01) ==
LOC: SDS 06:31 → MS2 06:31
PROVIDERS: ADMIT Urology; ATTEND Urology
DX: Z79.85 Long-term (current) use of injectable non-insulin antidiabetic drugs; R39.11 Hesitancy of micturition; Z79.84 Long term (current) use of oral hypoglycemic drugs; N40.1 Benign prostatic hyperplasia with lower urinary tract symptoms; E11.9 Type 2 diabetes mellitus without complications; R39.89 Other symptoms and signs involving the genitourinary system; N32.89 Other specified disorders of bladder; R31.0 Gross hematuria